=== PATIENT | male | born 1985 | race Caucasian/White ===

== ENCOUNTER 2020-01-26 09:15 | Emergency (ER) | payer MEDICAID, SELFPAY ==
[2020-01-26] VITALS (8 sets, daily range): BP systolic 130–148; BP diastolic 79–91; PULSE 68–94; RESP 16–18; TEMP 36.6–36.9; O2SAT 94–99; BMI 22.3
[2020-01-26 11:04] LABS: Absolute Lymphocyte Count 1.16 X10^3/uL (0.83-4.51); Absolute Neutrophil Count 4.9 X10^3/uL (2.0-7.7); Basophil# 0.01 X10^3/uL; Basophil% 0.1 % (0-1); Eosinophil# 0.04 X10^3/uL; Eosinophils% 0.6 % (0-5); Hemoglobin 15.7 g/dL (13.0-16.5); Lymphocyte # 1.16 X10^3/ul (4.0); Lymphocyte % 16.7 % (19-41); Mean Corp Hgb Conc 34.9 g/dL (32-36); Mean Corpuscular Hgb 32.4 pg (27.0-32.0); Mean Corpuscular Volume 92.8 fL (80-94); Mean Platelet Vol. 9.6 fl (6.2-12.0); Monocyte# 0.76 X10^3/uL; NRBC Flagged by Analyzer 0 % (0-5); Neutrophil # 4.93 X10^3/uL (2.7-7.7); Platelet Count 256 K/mm3 (150-450); RBC Distribution Width CV 11.5 % (11.6-14.6); RBC Distribution Width SD 38.9 fl (35.1-43.9); Red Blood Count 4.85 M/mm3 (4.6-6.2); White Blood Count 6.9 K/mm3 (4.4-11.0)
[2020-01-26 11:12] LABS: Alcohol, Blood (Medical)-Serum < 3.0 mg/dL
[2020-01-26 11:17] LABS: Amphetamine Urine VISTA NEGATIVE (<1000 ng/mL); Barbiturate Urine VISTA NEGATIVE (< 200 ng/mL); Benzodiazepine Urine VISTA NEGATIVE (< 200 ng/mL); Cocaine Urine VISTA NEGATIVE (< 300 ng/mL); Ecstacy Urine VISTA NEGATIVE (< 500 ng/mL); Methadone Urine VISTA NEGATIVE (< 300 ng/mL); PCP Urine VISTA NEGATIVE (< 25 ng/mL); THC Urine VISTA NEGATIVE (< 50 ng/mL); Vista UDS pH Range 6
[2020-01-26 11:26] LABS: ALB/GLOB Ratio 1.3 RATIO (0.9-2.4); AST(SGOT) 18 U/L (15-37); Alanine Aminotransfer ALT/SGPT 36 U/L (16-61); Albumin, Serum 4.4 g/dL (3.2-5.0); Alkaline Phosphatase 57 U/L (45-117); Anion Gap 3 (5-15); BUN 11 mg/dL (7-18); BUN/Creat Ratio 10.4 RATIO (10-20); Calcium,Total 9.4 mg/dL (8.5-10.1); Chloride 107 mmol/L (98-107); Creatinine, Serum 1.06 mg/dL (0.70-1.30); EST Glomerular Filtration Rate 85 mL/min (>60); Est Glom Filt Rate - Afr Amer 102 mL/min (>60); Globulin 3.3 g/dL (2.2-4.2); Glucose 93 mg/dL (74-106); Potassium 4.1 mmol/L (3.5-5.1); Protein, Total 7.7 g/dL (6.4-8.2); Sodium Level 140 mmol/L (136-145); Thyroid Stim Hormone (TSH) 2.86 uIU/mL (0.358-3.74)
--- NOTE | 2020-01-26 11:53 | CM.ED ---
Social Work Consult: Mental Health/Suicidal Patient self-pay. Telephone call to crisis. Dr. Guevara recommending psychiatric placement for patient. Crisis to facilitate placement. Crisis requesting for clinical information to be faxed. Clinical information faxed to [phone]. Medical team updated. Santino VAZQUEZ, MERLY
--- NOTE | 2020-01-26 12:20 | CM.ED ---
Addendum entered by Noemi Barkley 01/26/20 20:46: Correction: Patient now speaking with crisis Original Note: Social Work Telephone call from Crisis, This secondary social studies teacher facilitating conversation with crisis and patient via phone. Patient now speaking with patient. Santino VAZQUEZ, MERLY
--- NOTE | 2020-01-26 13:31 | ED.VIS.GEN ---
History of Present Illness Informant: Patient Narrative: Patient states that for the better part of a decade he has been compensating for his depression. However during 2019 he is not been as stable. He states it all began approximately a decade ago when he was arrested for a driving while impaired. This was in [place] and eventually he moved to [place]. While there he became the father of a child. That relationship with the mother did not work out for a variety of reasons. He states that he had a relationship with another woman that ended. He states that numerous documents were dropped back into his life. By this he means that documents that he had assume were gone suddenly appeared in his room. The screen on his phone was changed. He states I feel like the bees in the birds are after me. He states that there is a conspiracy theory that he is a part of. He tells me that 3 weeks ago he moved from [place] back to [place]. He reports that in the past 24 hours that suicide is now on the table. He denies any recent hospitalizations. States he has not been eating or sleeping well. He states that it is becoming hard to shower. <Lenny Guevara - Last Filed: 01/26/20 13:31> <Niurka Tompkins - Last Filed: 01/26/20 21:11> <Tha Mon - Last Filed: 01/27/20 00:39> Chief Complaint: Suicidal Past Medical History Smoking Status: Current every day smoker <Lenny Guevara - Last Filed: 01/26/20 13:31> <Niurka Topmkins - Last Filed: 01/26/20 21:11> <Tha Mon - Last Filed: 01/27/20 00:39> - Allergies and Home Meds Allergies/Adverse Reactions: Allergies No Known Allergies Allergy (Verified 01/26/20 09:22) Primary Care Physician: Care Physician,No Primary [Primary Care Provider] - Review of Systems General: Denies: Chills, Fever, Sweats Eyes: Denies: Visual changes - bilaterally, Diplopia ENT: Denies: Rhinorrhea, Sore throat Cardiovascular: Denies: Chest pain, Palpitations Respiratory: Denies: Dyspnea, Cough, Dyspnea on exertion Gastrointestinal: Denies: Abdominal pain, Nausea, Vomiting, Diarrhea, Melena, Hematochezia Genitourinary: Denies: Dysuria, Hematuria, Frequency Musculoskeletal: Denies: Back pain, Extremity Pain Skin: Denies: Rash, Wounds Neurological: Denies: Headache, Weakness, Numbness Psych: Reports: Depression, Suicidal thoughts <Lenny Guevara - Last Filed: 01/26/20 13:31> Physical Exam Vital Signs/Narrative: Vital Signs Resp 01/26/20 12:00 16 01/26/20 11:00 16 Inital Vital Signs reviewed: Yes General: Well nourished, Well developed, No Acute Distress Head: Normocephalic, Atraumatic Eyes: Perrl, EOMI ENT: Moist mucous membranes, No rhinorrhea Neck: Supple, Nontender Cardiovascular: Regular rate, Regular rhythm, No murmurs Respiratory: No distress, CTA bilaterally, Chest nontender Abdomen: Soft, Nontender, Nondistended, Normal bowel sounds Back: Nontender, Normal Inspection Extremities: Nontender, No edema Skin: Normal color, No rash Neurological: Alert, Oriented x3, Cranial nerves II-XII grossly intact, Normal Strength, Normal Sensation Psychological: Depressed, - - Patient appears to have some nonlinear thinking at times. He needs to be redirected. He speaks very slowly and at times very cryptic. <Lenny Guevara - Last Filed: 01/26/20 13:31> Vital Signs/Narrative: Vital Signs Temp Pulse Resp BP Pulse Ox 01/26/20 19:59 97.9 F 68 16 130/79 H 94 01/26/20 19:39 16 01/26/20 18:18 18 <Niurka Tompkins - Last Filed: 01/26/20 21:11> Diagnostic/Tx/Re-eval Laboratory Last Values WBC 6.9 K/mm3 (4.4-11.0) 01/26/20 10:05 RBC 4.85 M/mm3 (4.6-6.2) 01/26/20 10:05 Hgb 15.7 g/dL (13.0-16.5) 01/26/20 10:05 Hct 45.0 % (40-54) 01/26/20 10:05 MCV 92.8 fL (80-94) 01/26/20 10:05 MCH 32.4 pg (27.0-32.0) H 01/26/20 10:05 MCHC 34.9 g/dL (32-36) 01/26/20 10:05 RDW Std Deviation 38.9 fl (35.1-43.9) 01/26/20 10:05 RDW Coeff of Mindi 11.5 % (11.6-14.6) L 01/26/20 10:05 Plt Count 256 K/mm3 (150-450) 01/26/20 10:05 MPV 9.6 fl (6.2-12.0) 01/26/20 10:05 Immature Gran % (Auto) 0.600 % (0.0-0.9) 01/26/20 10:05 Neut % (Auto) 71.0 % (47-70) H 01/26/20 10:05 Lymph % (Auto) 16.7 % (19-41) L 01/26/20 10:05 Freestone % (Auto) 11.0 % (0-10) H 01/26/20 10:05 Eos % (Auto) 0.6 % (0-5) 01/26/20 10:05 Baso % (Auto) 0.1 % (0-1) 01/26/20 10:05 Absolute Neuts (auto) 4.9 X10^3/uL (2.0-7.7) 01/26/20 10:05 Absolute Lymphs (auto) 1.16 X10^3/uL (0.83-4.51) 01/26/20 10:05 Nucleated RBC % 0 % (0-5) 01/26/20 10:05 Sodium 140 mmol/L (136-145) 01/26/20 10:05 Potassium 4.1 mmol/L (3.5-5.1) 01/26/20 10:05 Chloride 107 mmol/L (98-107) 01/26/20 10:05 Carbon Dioxide 30.0 mmol/L (21.0-32.0) 01/26/20 10:05 Anion Gap 3 (5-15) L 01/26/20 10:05 BUN 11 mg/dL (7-18) 01/26/20 10:05 Creatinine 1.06 mg/dL (0.70-1.30) 01/26/20 10:05 Estim Creat Clear Calc 100.80 ml/min 01/26/20 10:05 Est GFR (MDRD) Af Amer 102 mL/min (>60) 01/26/20 10:05 Est GFR (MDRD) Non-Af 85 mL/min (>60) 01/26/20 10:05 BUN/Creatinine Ratio 10.4 RATIO (10-20) 01/26/20 10:05 Glucose 93 mg/dL (74-106) 01/26/20 10:05 Calcium 9.4 mg/dL (8.5-10.1) 01/26/20 10:05 Total Bilirubin 0.80 mg/dL (0.20-1.00) 01/26/20 10:05 AST 18 U/L (15-37) 01/26/20 10:05 ALT 36 U/L (16-61) 01/26/20 10:05 Alkaline Phosphatase 57 U/L (45-117) 01/26/20 10:05 Total Protein 7.7 g/dL (6.4-8.2) 01/26/20 10:05 Albumin 4.4 g/dL (3.2-5.0) 01/26/20 10:05 Globulin 3.3 g/dL (2.2-4.2) 01/26/20 10:05 Albumin/Globulin Ratio 1.3 RATIO (0.9-2.4) 01/26/20 10:05 TSH 2.86 uIU/mL (0.358-3.74) 01/26/20 10:05 Urine Opiates Screen NEGATIVE (< 300 ng/mL) 01/26/20 09:54 Urine Methadone Screen NEGATIVE (< 300 ng/mL) 01/26/20 09:54 Ur Barbiturates Screen NEGATIVE (< 200 ng/mL) 01/26/20 09:54 Ur Phencyclidine Scrn NEGATIVE (< 25 ng/mL) 01/26/20 09:54 Ur Amphetamines Screen NEGATIVE (<1000 ng/mL) 01/26/20 09:54 U Methamphetamin-MDMA NEGATIVE (< 500 ng/mL) 01/26/20 09:54 U Benzodiazepines Scrn NEGATIVE (< 200 ng/mL) 01/26/20 09:54 Urine Cocaine Screen NEGATIVE (< 300 ng/mL) 01/26/20 09:54 U Cannabinoids Screen NEGATIVE (< 50 ng/mL) 01/26/20 09:54 Ur Drug Screen Comment 01/26/20 09:54 Ethyl Alcohol < 3.0 mg/dL 01/26/20 10:05 - Medical Decision Making Patient was medically cleared for psychiatric evaluation. Crisis evaluated the patient. Patient does not appear to be doing well from his mental health standpoint. He is not eating sleeping or taking care of himself like normal. In the past 24 hours she now tells me that suicide has entered his thought. I get a sense that he may have a degree of paranoia. I think he would benefit from inpatient psychiatric evaluation. <Lenny Guevara - Last Filed: 01/26/20 13:31> - Rhythm Strip Rhythm Strip: Sinus Rhythm Rate: 63 Ectopy: None - EKG Initial EKG Interpretation: Sinus Rhythm, - - Sinus rhythm at a rate of 63 Normal intervals Normal axis Normal ST segments - Medical Decision Making Patient signed out to me by Dr. Guevara, pending psychiatric acceptance. [facility] states that he is #8 on the list she will be a couple days before he can be accepted. I did request EKG which is obtained. It shows normal sinus rhythm. Patient is medically cleared. They did state that they would need a coronavirus test so this is ordered. While patient is in the ER he is requesting melatonin for sleep. This is ordered. <Niurka Tompkins - Last Filed: 01/26/20 21:11> - Medical Decision Making Patient was signed out to me. He is calm collected and stable I had a long discussion with him he is in no acute distress he is accepted at [facility] however there are no beds at this time and he is awaiting transfer. <Tha Mon - Last Filed: 01/27/20 00:39> ED Disposition <Lenny Guevara - Last Filed: 01/26/20 13:31> <Niurka Tompkins - Last Filed: 01/26/20 21:11> <Tha Mon - Last Filed: 01/27/20 00:39> - Plan for ED Patient: Disposition: Psychiatric Hospital or Unit Diagnosis: Depression, Suicidal thoughts, Paranoia Referrals: Care Physician,No Primary [Primary Care Provider] -
--- NOTE | 2020-01-26 19:51 | EKG12_ITS ---
Test Reason : [facility] – [place] Blood Pressure : / mmHG Vent. Rate : 063 BPM Atrial Rate : 063 BPM P-R Int : 142 ms QRS Dur : 102 ms QT Int : 400 ms P-R-T Axes : 032 073 038 degrees QTc Int : 409 ms Normal sinus rhythm Normal ECG Confirmed by MARCELLE SHAW, JONN ([id number]), pictures editor SHARMAINE GRANDE ([id number]) on 01/30/2020 8:43:04 AM Referred By: IVAN Confirmed By:JONN IBANEZ MD
[2020-01-26] MEDS: MELATONIN 10 MG TABLET PO (19:58)
--- NOTE | 2020-01-26 21:07 | CM.ED ---
Social Work Telephone call to Crisis to check on status of case. Patient pending [facility] approval. [facility] requesting for EKG and COVID results to be faxed when obtained. [facility] reports that it could be Wed or Wednesday before patient is accepted. Updated medical team. Medical team to fax EKG and COVID results when obtained. Santino VAZQUEZ, MERLY
[2020-01-26 21:36] LABS: Probe Check PASS; Specimen Processing Control PASS
[2020-01-27] VITALS (11 sets, daily range): BP systolic 128–139; BP diastolic 72–80; PULSE 70–80; RESP 14–16; O2SAT 99–100
[2020-01-27] MEDS: MELATONIN 10 MG TABLET PO (21:27)
[2020-01-28] VITALS (12 sets, daily range): BP systolic 118–135; BP diastolic 75–87; PULSE 63–73; RESP 13–17; O2SAT 96–100
--- NOTE | 2020-01-28 18:53 | ED.RN ---
pt on the phone with crisis
[2020-01-28] MEDS: MELATONIN 3 MG TABLET PO (20:29)
[2020-01-29] VITALS (14 sets, daily range): BP systolic 118–135; BP diastolic 76–87; PULSE 72–86; RESP 14–18; O2SAT 96–98
--- NOTE | 2020-01-29 11:39 | CM.ED ---
SOCIAL WORK Patient's mother at bedside with questions for Crisis. Call facilitated to Aimee with Crisis. Patient awaiting bed at [facility] at this time. Angelito Parikh, COMBAT CONTROL MANAGER, SKID ROAD WORKER
--- NOTE | 2020-01-29 14:00 | CM.ED ---
SOCIAL WORK Mother and patient requesting to speak with this worker. Patient reporting to no longer feel suicidal. Mother wanting to take patient home with outpatient follow up. Dr. Chacko updated. Crisis updated. Updated by Dr. Chacko, plan to discharge patient in mother's care. Patient and mother given mental health resources for follow up. Patient already established with counselor through [facility], but wishes to be seen by a psychiatrist. All questions answered. Plan: Home Angelito Parikh MSW, MANAGER DISTRIBUTION
--- NOTE | 2020-01-29 14:28 | ED.DCSUM_ITS ---
History of Present Illness Chief Complaint: Suicidal Informant: Patient Narrative: Patient presented to the emergency department over 72 hours ago for possible suicidal ideation. He was having some tangential thinking as well. He recently moved from [place] to [place]. Throughout his course of ED stay he was pink slipped. He was going to be placed but unfortunately was not able to be transferred due to no bed availability. Patient is had been following the patient daily. Over the last 24 hours he has been saying he is no longer suicidal. His mother has been at bedside. Since the patient has not been able to be placed they are wanting to be discharged at this time. He is currently d enying any homicidal or suicidal ideation. He does follow with a counselor as an outpatient. Past Medical History - Allergies and Home Meds Allergies/Adverse Reactions: Allergies No Known Allergies Allergy (Verified 01/26/20 09:22) Primary Care Physician: Jose Yee DO [STAFF PHYSICIAN] - 2 Days Care Physician,No Primary [Primary Care Provider] - Smoking Status: Current every day smoker Review of Systems Psych: Denies: Suicidal thoughts, Suicidal ideations Physical Exam Vital Signs/Narrative: Vital Signs Pulse Resp BP Pulse Ox 01/29/20 11:41 79 16 134/86 H 96 Inital Vital Signs reviewed: Yes General: Well nourished, Well developed Head: Normocephalic, Atraumatic Eyes: Perrl, EOMI ENT: Moist mucous membranes Neck: Supple Cardiovascular: Regular rate Respiratory: No distress Abdomen: Nondistended Skin: Normal color, No rash Neurological: Alert, Oriented x3 Psychological: Normal affect, Normal Mood Diagnostic/Tx/Re-eval - Rhythm Strip Rhythm Strip: Sinus Rhythm Rate: 63 Ectopy: None - Medical Decision Making Patient presented to the emergency department for possible suicidal ideation and some tangential thinking. He has been in the ED for over 72 hours. They are now requesting to be discharged as he has not been able to be placed at this point. Crisis feels that the patient is no longer a threat to himself. I went and reevaluate the patient and he is stating that he no longer has these thoughts. He is requesting to be discharged. Patient did go past the 72 hours from initial pink slip being signed. At this time I have no reason to re-sign a pink slip as he is denying suicidal ideation. He has been feeling better over the past 2 days. He is requesting outpatient resources and social work was able to provide this. The mother who is at bedside is agreeable with this plan. She does feel comfortable taking him home. He does have resources and a counselor. He understands that he can return to the emergency department anytime if he were to have repeat symptoms or thoughts of harming himself. At this time will discharge home in stable condition. He is given referral for PCP as he does not currently have one. ED Disposition - Plan for ED Patient: Disposition: Home or Assisted Living Diagnosis: Depression, Suicidal thoughts, Paranoia Instructions: ED Psychosis, ED 72-HOUR HOLD Suicidal Referrals: Care Physician,No Primary [Primary Care Provider] - Jose Yee DO [STAFF PHYSICIAN] - 2 Days
== END 2020-01-29 14:45 | disposition home or self-care (01) ==
PROVIDERS: Emergency Medicine; Emergency Provider Emergency Medicine
DX: F32.9 Major depressive disorder, single episode, unspecified (principal); R45.851 Suicidal ideations; F22 Delusional disorders; F17.200 Nicotine dependence, unspecified, uncomplicated
CPT/HCPCS: 36415; 80053; 80307; 80320; 84443; 85025; 87635; 93005; 94799; 99284; G0480; U0003

== ENCOUNTER 2020-07-31 09:00 | Outpatient (RCR) | payer MEDICAID, SELFPAY ==
[2020-01-26 09:18] VITALS: BMI 22.3
--- NOTE | 2020-07-31 09:49 | BH.COMM ---
Communication Note - Communication with Client Communication Note: Met with client to complete initial paperwork. No significant changes since pre-admission screening. Completed [place] Suicide Screening. Client denies any suicidal ideations, plan, or intent within the past month. Reports he had passive wishes of around Janet, but client denies any currently. Client has no history of suicide attempts. Client was in the [facility] ER on 01/26/20 for SI. Client reports in his lifetime he has had thoughts of killing himself, but he?s never had any intent to act on these thoughts. Client?s daughter is his biggest protective factor. Denies access to weapons and lives at home with his parents. Reports ability to maintain safety today.
--- NOTE | 2020-07-31 11:10 | BH.SGPN.GN ---
Behaviors/Verbalizations/Mental Status: []Client alert and oriented, casually dressed, hygiene appeared to be tended to. Eye contact fair. Motor activity appropriate. Speech within normal limits. Affect flat, mood depressed. Thoughts linear, logical, no signs of hallucinations or delusions. Client Response/Progress/Benefit: []Client passive participant AEB pt providing limited input however appeared to listen attentively to discussion. Client worked with group to identify what mental stigma has prevented them from doing. Client stated stigma has prevented him from developing meaningful relationships. Group brainstormed strategies to combat social and perceived stigma which included: educating others, no longer using negative language about mental illness, being open about mental health, self-compassion and not reinforcing stigma with behaviors or labels. Client stated he cannot identify at this time what he wants to work on to decrease perceived stigma. Appeared to benefit from increasing awareness of strategies to combat stigma. Client's first day in PHP. Will continue PHP tx to increase healthy coping, improve daily functioning, and prevent decompensation.
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
--- NOTE | 2020-07-31 13:00 | BH.MTP ---
Master Treatment Plan - Patient Information Program Physician:: Dr. Annalise Natarajan Primary Therapist:: Khoa Banks - Psychiatric Diagnoses Psychiatric Diagnoses:: Bipolar 1, most recent episode depressed, severe w/ psychosis. r/o Schizoaffective. r/o Paranoid Personality D/O Diagnosis Code(s):: F31.5 - Estimated LOS Estimated LOS (in weeks):: 6 Problem/Goal #1 - Problem/Goal #1 Stated Goal:: Client will reduce depression, worthlessness, guilt, and suicidal thinking due to Bipolar Disorder through IOP services. Will show a reduction in the depression domains of the DSM5 cross-cutting scales. Description of Barriers: Ruminations, grief, limited motivation to move from the past, hopelessness due to belief that he will never get out of debt or be with his daughter Functional Impact: Worsening mental health symptoms for the past several months which have impacted pt's relationships, finances, work, and overall functioning. Had not been to work for 5 days previous to starting IOP to due depression related to constant ruminations on past events. - Objectives Objective #1 Stated Objective: Client will identify at least 2 triggers to increased depressive thinking, as well as 2 coping skills to use to help avoid depressive rumination. Will utilize skills learned consistenly Interventions: Through indivudal and group counseling pt will be able identify negative thinking patterns to trigger mood changes and help encourage the use of coping skills learned in group. Discharge Criteria: Client will have met this goal when better insight into mood changes and negative thinking are identified. Pt will be able to identify most common triggers to depression and 2 skills to utilize to help manage emotions related to triggers. Target Date: 09/11/20 Review Date: 08/28/20 Problem/Goal #2 - Problem/Goal #2 Stated Goal:: Client will reduce overall frequency, intensity, and duration of the anxiety so that daily functioning is not impaired. Will show reduced score in the anxiety domain of the DSM5 cross-cutting scales. Description of Barriers: Ruminations, grief, limited motivation to move from the past. Functional Impact: Worsening mental health symptoms for the past several months which have impacted pt's relationships, finances, work, and overall functioning. Had not been to work for 5 days previous to starting IOP to due anxiety and intrusive thoughts related to constant ruminations on past events. - Objectives Objective #1 Stated Objective: Complete Cost Benefit Analysis of Maintaining the Anxiety listing advantages and disadvantages of negative thoughts, fear, or anxiety. Interventions: Through individual and group counseling pt will be able to identify the costs of current ruminations on functioing and mental wellness. Will explore strategies to decrease the impact of ruminations of daily fucntioning. Discharge Criteria: Will have completed cost/benefit analysis and report new strategies to combat anxiety and irritability through mindfullness, focusing on present, and identifying and managing distress related to triggers. Pt will also show a reduction in anxiety AEB decreased scores in anxiety domain of DSM-5 cross-cutting scales. Target Date: 09/11/20 Review Date: 08/28/20 Problem/Goal #3 - Problem/Goal #3 Stated Goal:: Decrease the frequency, intensity, and severity of ruminations on past events and misinterpretations of reality AEB by self report, parents report, and decrease in relavant DSM5 scale domains. Description of Barriers: Perception of past events has resulted in significant emotional distress. Reports inability to let go of past percieved events despite advice of family and friends. Spending hours per day researching legal recourse for percieved past events. Functional Impact: Worsening mental health symptoms for the past several months which have impacted pt's relationships, finances, work, and overall functioning. Had not been to work for 5 days previous to starting IOP to due anxiety and intrusive thoughts related to constant ruminations on past events. - Objectives Objective #1 Stated Objective: Develop healthy thinking patterns and beliefs about self, others, and the world Interventions: Through individual and group counseling provide education and guidance on healthy coping, impact of ruminations of the past, and identifying and challenging unrealistic intrustive thoughts. Discharge Criteria: Pt will be able to identify 3 strategies to manage emotional distress related to triggers to paranoid thoughts. Pt will report decreased amount of time spent researching and ruminating on past events. Target Date: 09/17/20 Review Date: 08/27/20
--- NOTE | 2020-07-31 13:08 | BH.DR.ITP ---
Initial Treatment Plan - Patient Information Visit Information: ADMISSION DATE: EXPECTED LOS: 4-6 weeks - Problems/Symptoms Problem #1:: Depression Symptom:: Sadness, worthlessness, occasional hopelessness, guilt Problem #2:: Anxiety Symptom:: Worry, ruminations Problem #3:: Paranoia
--- NOTE | 2020-08-01 09:00 | BH.SGPN.GN ---
Behaviors/Verbalizations/Mental Status: []Client alert and oriented, casually dressed. Eye contact fair. Motor activity appropriate. Speech within normal limits. Affect constricted, mood anxious and dysthymic. Thoughts linear, logical, no signs of hallucinations or delusions. Reviewed client?s symptom tracker, no risk or plan for suicide ideation as of 08/01/20. Client Response/Progress/Benefit: []Client responded well to session, engaged throughout and participated in group discussion. Client reported feeling ?slightly relieved and hopeless? after sharing his positive experience with IOP on his first day. Client reflected and stated how he felt understood when speaking with Dr. Payne and client reported a positive as getting his medication prescribed. Client stated his goal as ?stop ruminating on the past.? Progress noted as client was vulnerable and chose to share in his first process group in IOP treatment. Benefited from group as other group members shared positive insight of IOP program to reduce client nerves. Will continue IOP to monitor psychosis, prevent decompensation, and learn healthy coping skills. Narrative Note: []
--- NOTE | 2020-08-01 10:08 | BH.SGPN.GN ---
Behaviors/Verbalizations/Mental Status: []Client alert and oriented, neatly dressed and groomed. Eye contact good. Motor activity appropriate. Speech within normal limits. Affect flat, mood dysthymic. Thoughts linear, logical, no signs of hallucinations or delusions Client Response/Progress/Benefit: []Client was engaged AEB taking notes and participating in discussion. Client shared current reality as gripping jail bars with his daughter on the other side as client feels isolated and unsure of his situation. Client's realistic, desired reality is to be with his daughter, feeling more hopeful, and having help to ?fight for my rights.? Client reports belief that he is ?1,000 miles away? from his justice and happiness. Group discussed common barriers that keep people stuck to include stigma, upbringing, self-comparison, lack of self-care, and negative thinking. Benefited from group as client was able to identify current and desired mental health state and increase awareness of how barriers can impact progress. Progress noted in client?s attendance and engagement. Will continue IOP tx to prevent decompensation, monitor mood, and learn health coping skills. Narrative Note: []
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
[2020-08-01 12:13] VITALS: BP 137/88; PULSE 86
--- NOTE | 2020-08-01 15:17 | BH.MDN ---
Multi-Disciplinary Note - Note 30-min Individual Time Started:: 12:10 Date: 08/01/20 Purpose of session/treatment goals addressed:: Reviewed current symptoms, stressors, and experience in IOP. Practiced mindfulness skills. Eye Contact:: Fair Motor Activity:: Appropriate Appearance:: Casual Speech:: Other - slow Mood:: Depressed Affect:: Constricted Thoughts:: Other - evidence of probable paranoia. Did well to focus during skill rehearshal Staff Interventions:: Provided supportive feedback and actively listening. Provided psychoeducation on impact of stress on the brain. Led mindfulness activities for client to practice in session. Client Response:: Client reports that he is feeling more hopeful since starting IOP. Believes that medication changes made were effective. Reports last night sleep was ?refreshing? and his thought process was less intense with the medication change. Client reports his goal from yesterday was to spend 30 minutes not ruminating on the past. Client shared he tried this but was unsuccessful due to his racing mind. Client receptive to psychoeducation on mindfulness and stress?s impact on the brain. Client willing to practice progressive muscle relaxation and 5-senses. Client responded better to progressive muscle relaxation and shared he could see himself practicing this at home. Client endorses some ruminations about his past and had legal questions. Therapist was unable to give client clear answers and encouraged client to address this with his regular IOP therapist. Client receptive to gentle thought challenging and encouragement. Risks/Concerns:: Client denies any suicidal ideations, plan, or intent as of 08/01/20. No other concerns or risks noted. Progress Toward Goals/Plan:: Progress noted per client report of improve sleep and being more hopeful since starting IOP. Second day of treatment, but he has been consistent and engaged. Client is receptive to learning new skills as well as being challenged to reframe perspective. Client continues to endorse ruminations on the past, paranoid thoughts, anxiety, a depressed mood, and racing thoughts. Will continue IOP tx to maintain safety, improve daily functioning, and increase healthy coping skills. Time Stopped:: 12:45
--- NOTE | 2020-08-02 09:05 | BH.SGPN.GN ---
Behaviors/Verbalizations/Mental Status: [] Eye contact is good. Motor activity is appropriate. Appearance is disheveled. Speech is soft. Mood is depressed. Affect is flat. Thoughts are linear and logical. No evidence of psychosis. Reviewed daily check in sheet and no suicidal thoughts. Client Response/Progress/Benefit: [] Pt participated at times during group discussion. Emotion for today is hopeful. Daily symptom tracker notes 3/5 for irritability and 2/5 for depression and anxiety. Shared with the group that he believes that recent medication changes have been beneficial and discussed his reasons for believing this. Reports that he is feeling more optimistic and hopeful about his future. Check-in was brief. Progress noted per pt report. Will continue in IOP to prevent decompensation, stabilize mood, and to improve functioning. Narrative Note: []
--- NOTE | 2020-08-02 10:15 | BH.SGPN.GN ---
Behaviors/Verbalizations/Mental Status: [] Eye contact is good. Motor activity is appropriate. Appearance is disheveled. Speech is Appropriate. Mood is depressed. Affect is flat. Thoughts are linear and logical. No evidence of psychosis. Client Response/Progress/Benefit: [] Pt was an active participant in group discussions and activities. Attentive. Worked with peers to define what self-care is and it's benefits to mental health. Self-care was identified as activities that we do to; maintain/enhance our well-being, reduce stress, increase communication, improve view of self, decrease burnout, and to have fun. Group discussed the obstacles to completing self-care activities and the myths surrounding them which included; self-care is selfish, I'm too busy for them, self-care is just having fun, I don't deserve to do self-care, self-care has to be planned, self-care should only be done when I have nothing else to do. Group broke into smaller groups and worked together to bust these myths. Pt benefited due to increased awareness of importance of self-care in mental health. Will continue in IOP to prevent decompensation, stabilize mood, and improve functioning Narrative Note: []
--- NOTE | 2020-08-02 11:15 | BH.SGPN.GN ---
Behaviors/Verbalizations/Mental Status: []Client alert and oriented, neatly dressed and groomed. Eye contact good. Motor activity appropriate. Speech within normal limits. Affect flat, mood dysthymic. Thoughts linear, logical, no signs of hallucinations or delusions. Client Response/Progress/Benefit: []Client active participant AEB client providing input during discussions and listened attentively to peers. Participated in group discussion on the various areas of self-care and types of self-care activities for each area. Client completed worksheet in which client identified current self-care practices and what self-care activities client wants to start using. Client reports belief spiritual self-care in a current strength, but client would like to improve psychological self-care. Client states he feels like he is struggling with most of the areas of self-care, but client has started taking steps to improve his psychological self-care. Client plans to continue working on this area by coming to counseling and setting boundaries. Client?s first week of IOP tx. Will continue IOP tx to prevent decompensation, learn healthy coping skills, and improve daily functioning. Narrative Note: []
--- NOTE | 2020-08-02 13:00 | BH.MDN_ITS ---
Multi-Disciplinary Note - Note 45-min Individual Time Started:: 12:15 Date: 08/02/20 Purpose of session/treatment goals addressed:: Reviewed current symptoms, stressors, and progress in IOP. Addressed treatment plan goals. Eye Contact:: Good Motor Activity:: Appropriate Appearance:: Casual Speech:: Soft Mood:: Depressed Affect:: Flat Thoughts:: Linear, Logical, Other - paranoia Staff Interventions:: Challenged and reframed thoughts. Pointed out cognitive distortions. Utilized CO techniques to elicit change. Client Response:: Pt reports that he is feeling more hopeful since starting IOP. Believes that medication changes made were effective. Reports being less anxious, more hopeful, and more clear-minded to focus on changes. Plans to return back to work this weekend. Has no overt concerns about this. He talked briefly about his relationship with his parents( with whom he lives) and thier struggle to understand and help with his mental health symptoms. He does believe they have been supportive. He discussed his previous mental health treatment at [facility] and [facility] as well as his current therapist at [facility] ([facility]). Past events in [place] continue to be primary stressor for which he talked at length. This therapist continues to try on work on ways to reframe perspective and thoughts and focus on the future. Pt states its hard to forget that 5 years of my life were wasted. When challenged that rumination and dwelling could waste 5 more years of his life he was receptive to the power of these ruminations. Risks/Concerns:: no risks or concerns noted. Progress Toward Goals/Plan:: Progress noted per pt report. Reports being more hopeful, less anxious, and more clear-headed. Consistent and engaged in group work. Responds well to challenges and encouragment of this counseling to focus on present and future, however feels that he has to address the pass. Insight that he could do both as they are not mutally exclusive. Plan is to continue in IOP to maintain safety, improve functioning, and stablize mood. Time Stopped:: 13:00
--- NOTE | 2020-08-05 09:00 | BH.SGPN.GN ---
Behaviors/Verbalizations/Mental Status: []Client alert and oriented, casually dressed. Eye contact fair. Motor activity appropriate. Speech within normal limits. Affect constricted, mood anxious and dysthymic. Thoughts linear, logical, no signs of hallucinations or delusions. Reviewed client?s symptom tracker, no risk or plan for suicide ideation as of 08/05/20 Client Response/Progress/Benefit: []Client responded well to session, engaged throughout and participated in group discussion. Client reported feeling ?anxious and slightly relieved? this morning. Stated he went back to work over the weekend and reported practicing mindfulness like progressive muscle relaxation, meditation, and prayer to decrease ruminations. Progress noted as client also reported his medication working longer than before, as well journaling when ruminating to help gather thoughts. Benefited from group as peers provided positive support and feedback to client.. Will continue IOP to prevent decompensation, reduce negative thinking, and practice healthy coping skills daily. Narrative Note: []
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
--- NOTE | 2020-08-05 10:50 | BH.MDN_ITS ---
Multi-Disciplinary Note - Note 45-min Individual Time Started:: 12:15 Date: 08/05/20 Purpose of session/treatment goals addressed:: Reviewed symptoms and progress in IOP. Addressed treatment plan goals. Eye Contact:: Poor Motor Activity:: Slowed Appearance:: Disheveled Speech:: Soft Mood:: Depressed Affect:: Flat Thoughts:: Linear, Logical, Other - Mild paranoia regarding injustice agaisnt him. Staff Interventions:: Allowed pt to vent and discuss trauma in a safe and non- judgemental environment. Provided education on impact of trauma. Client Response:: Pt reports improved mood and sleep. States I slept a lot better last night. He opened up about his past trauma which lasted a majority of the session and dicussed the need for complex trauma treatment. Provided education and discussed the limitations of IOP in regards to trauma and we discussed researching providers in the area for aftercare. His goals for IOP are to meet with psychiatrist on consistent basis to figure out his medications; have a consistent outlet to talk about his ruminations; learn better ways to coping with emotions; and to gain hope. Risks/Concerns:: No risks or concerns noted. Progress Toward Goals/Plan:: Pt reports progress. Feels that medications and groups have been beneficial. Improved sleep, improved mood, and increased clarity. Continues to ruminate extensively on past events and injustices which cause sustained anger, hopelessness, and isolation. These ruminations are impacting his relationships. 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 Notes that this has decreased in intensity, frequency, and severity. Plan is to continue with IOP to stablize mood, increase healthy coping, and to improve functioning. Time Stopped:: 13:00
--- NOTE | 2020-08-05 11:20 | BH.SGPN.GN ---
Behaviors/Verbalizations/Mental Status: []Client alert and oriented, casually dressed and appropriately groomed. Eye contact fair. Motor activity appropriate. Speech within normal limits. Affect flat, mood depressed. Thoughts linear and intact. no signs of delusions or hallucinations. Client Response/Progress/Benefit: []Client responded well to session AEB pt listening attentively to peers and providing input at times. Client engaged in the boundary self-assessment activity and attentive during psychoeducation on the different boundary styles. Client participated in review of personal bill of rights and discussion about how adopting certain bill of rights can help improve boundary setting. Client stated from the personal bill of rights worksheet he wants to work on adopting the belief I have the right to be happy. Client stated he thinks starting to believe that bill of right could help him recognize that he is allowed to set boundaries with others and engage in things that will make him happy. Will continue IOP tx to improve daily functioning, increase healthy coping skills and prevent decompensation. Narrative Note: []
--- NOTE | 2020-08-06 10:50 | BH.MDN_ITS ---
Multi-Disciplinary Note - Note 60-min Individual Time Started:: 09:15 Date: 08/06/20 Purpose of session/treatment goals addressed:: Reviewed progress and current symptoms. Addressed treatment goals. Eye Contact:: Good Motor Activity:: Appropriate Appearance:: Disheveled Speech:: Soft Mood:: Depressed Affect:: Flat Thoughts:: Linear, Logical, No evidence of hallucinations/delusions noted - mild paranoia Staff Interventions:: Therapist continues to challenge pt's beleifs and perspectives regarding his ruminations. Provided educational handout on strategies to overcome past injustices. Client Response:: Pt reports that his medication change has been beneficial however he has noticed that his medications wear off in the afternoon. Also expressed interested in weaning off his Lexapro. Pt was placed on list to meet with psychiatrist tomorrow to discuss this further. Increased social behaviors as he reports spending time with his younger brother and family. He discussed yesterday's group on Boundaries stating that he has very rigid boundaries and has a difficult time trusting others. Awareness and insight that he has to respect his dad's boundaries more as well. He discussed this further. Identified some of his internal thoughts which included; no hope, no feeling in control, and feeling as if he was taken advantage of while he was living in [place]. Therapist continues to challnege belief that he has no control over his future and the ability to work both on himself in the present while minimizing the impact of the past on his emotions. Responds well to challenges. Risks/Concerns:: No risks or concerns noted. Progress Toward Goals/Plan:: Pt reports progress. Able to identify several external healthy coping skills which are mainly distractions and mindfulness strategies. We will focus more on developing internal coping skills to better manage thoughts. Consistent attendance in IOP. Engaged in groups. Medication compliant. As noted above his ruminations continue to impact his emotions and functioning. Did return to part-time work this past weekend, however does not feel he is able to return to full-time. Will continue in IOP to prevent decompe nsation, improve functioning, and decrease ruminations. Time Stopped:: 10:15
--- NOTE | 2020-08-07 09:05 | BH.SGPN.GN ---
Behaviors/Verbalizations/Mental Status: [] Eye contact is good. Motor activity is appropriate. Appearance is casual. Speech is Appropriate. Mood is depressed/irritable. Affect is congruent. Thoughts are linear and logical. No evidence of psychosis. Reviewed daily check in sheet and no reports of suicidal ideations or intent. Client Response/Progress/Benefit: [] Pt participated at times during the group discussion. Attentive. Provided appropriate feedback. Emotion for today is anxious and angry. Spoke with his daughter last evening which he reports is very positive for him. He shared his stressors which include finances and ruminations on his legal issues. Goal is to complete self-care. Notes that he is sleeping better and overall believes that his medication changes have been helpful slowing down thoughts and improving clarity. Progress noted per pt. Benefited from group support and encouragement. Will continue in IOP to prevent decompensation, stabilize mood, and increase healthy coping skills. Narrative Note: []
--- NOTE | 2020-08-07 10:00 | BH.SGPN.GN ---
Behaviors/Verbalizations/Mental Status: []Client alert and oriented, neatly dressed and groomed. Eye contact good. Motor activity appropriate. Speech soft. Affect constricted, mood depressed. Thoughts linear, logical, no signs of hallucinations or delusions. Client Response/Progress/Benefit: []Client engaged throughout session AEB providing input when prompted. Appeared to connect with discussion on crisis and how unhealthy coping could result in a personal crisis. Client shared getting accused of a crime as an example of a crisis. Group reflected on the importance of having awareness of personal warning signs in order to prevent reaching crisis point. Group identified potential warning signs for crisis and client completed the personal warning signs worksheet. Client identified personal crisis warning signs to include increased racing thoughts. Client benefited from increasing awareness of what leads to crisis and personal warning signs. Progress noted as client reports less hopelessness and learning healthy coping skills. Will continue IOP tx to prevent decompensation, monitor delusions, and improve ability to function. Narrative Note: []
--- NOTE | 2020-08-07 11:59 | PCM.BH.PN ---
Progress Note Progress Note: History of Present Illness/Interim History: [] The patient is a 35-year-old male who is seen in follow-up at the [facility] behavioral health IOP program. I last saw the patient 1 week ago and at that time his dose of Seroquel was increased to 200 mg p.o. nightly. The patient says he feels that the increased dose of Seroquel has helped him a lot. He feels he is ruminating and a less severe amount. His mood is also somewhat better. His dreams are more vivid but this does not disturb him. He feels that he is doing well in the IOP program and feels he is benefiting especially from the individual therapy. The group therapy is beneficial for him because he thinks about other people instead of just thinking about himself according to the patient. He continues to work on not thinking about the past all the time. He expressed an interest in getting treatment for complex trauma when he completes this program. The patient discussed past events and bad stressors he had during the interview. He denies any symptoms of rene. He denies passive thoughts of , suicidal ideation, homicidal ideation, hallucinations and delusions. He expresses a willingness to wean his Lexapro as it could increase the cycling in his bipolar disorder. Current Psychiatric Medications: [] Lexapro 10 mg p.o. daily (since January 2020); Lamictal 150 mg p.o. daily (since February 2020); Seroquel XR 200 mg p.o. nightly (dose increased 1 week ago). Mental Status Examination: [] Patient is a 35-year-old male who appears normal for stated age and is seen wearing a mask due to the pandemic. He is casually dressed and groomed with good hygiene. He has good eye contact but looks away at times when he is discussing a sensitive topic. Speech is normal rate and rhythm and fluent with no pressure. Mood is depressed. Affect is constricted and tearful at times. Thought process is goal-directed and organized. Thought content: There is no evidence of suicidal ideation, thoughts of , homicidal ideation, or hallucinations. There is still evidence of the patient's longstanding paranoia over things that have happened to him in the past and feeling that he is being monitored. Impulsivity is moderate. Insight: Limited. Judgment intact. Diagnoses: [] Olney I: [] Bipolar 1 disorder, most recent episode depression, severe with with psychosis; rule out schizoaffective disorder, bipolar type Ol[place] II: [] Rule out paranoid personality disorder; rule out schizotypal traits Olney III: [] Negative Olney IV:[]] Primary support, job, financial issues Plan: [] The patient will continue the IOP program at [facility] as the structure, support, education, individual and group therapy will hopefully prevent worsening of the patient's symptoms which might require hospitalization. The patient felt safe during the interview and if it anytime he does not feel safe he will let us know or go to the emergency room. The risks, options, possible complications and side effects of the medications were again discussed with the patient and he understands and accepts these. He agrees to avoid marijuana and all other drug use as much as possible as this may make his tendency to be psychotic get worse. He will continue the Seroquel XR at 200 mg p.o. nightly. He will continue his Lamictal at the current dose. He agrees to decrease his Lexapro to 1/2 tablet or 5 mg p.o. daily for 2 weeks and then discontinue it. Discussion was had with the patient and he requests that he obtain a letter stating that he is unable to work at the type of job that would make enough money to pay his child support at the high level he feels it is at. The patient will continue to follow-up with outpatient psychiatric and medical providers. I will see the patient in 1 to 2 weeks.
--- NOTE | 2020-08-07 13:15 | BH.MDN ---
Multi-Disciplinary Note - Note 45-min Individual Time Started:: 12:00 Date: 08/08/20 Purpose of session/treatment goals addressed:: Reviewed progress and current symptoms. Addressed treatment plan goals. Eye Contact:: Good Motor Activity:: Slowed Appearance:: Disheveled Speech:: Soft Mood:: Depressed Affect:: Flat Thoughts:: Linear, Logical, No evidence of hallucinations/delusions noted - mild paranoia Staff Interventions:: Continue to challenge perspective and beliefs as well as encourage focusing on present. Modeled thought challenging skills. Client Response:: Pt reports that meeting with psychiatrist went well and discussed medication changes. Talked about the group topic today which was crisis. Shared increased insight into taking ownership on how his negative thoughts and reactions contributed to his downward spiral in the past. Insight into his current ability to control these thoughts and inturn his reactions. Increased confidence in his ability to manage his thoughts, emotions, and behaviors. We talked about handout given yesterday regarding overcoming past injustices. Resistance on some aspects of the handout and he feels a responsibility to continue to research and seek legal avenues to right injustices of his past. We talked about identifying a point were the costs of seeking justice become detrimental. Open to this discussion and was able to state that if I'm unable to find a jewelry appraiser who specializes in my specific civil rights concerns or if a jewelry appraiser tells me that I don't have a case then he beleives he will be able to move on. Risks/Concerns:: no risks or concerns noted. Progress Toward Goals/Plan:: Progress noted per pt. He reports that he has been able to focus on activities outside of the past (books, TV, etc). Beleives that he is spending less time ruminating on the past and more time in the present. While this is progress a majoriy of his day and emotions continue to be impacted by ruminations and feelings of injustive and being taken advantage of. Will continue in IOP to prevent decompensation, increase healthy coping, and improve functioning to return to full-time work. Time Stopped:: 12:45
--- NOTE | 2020-08-08 09:05 | BH.SGPN.GN ---
Behaviors/Verbalizations/Mental Status: [] Eye contact is good. Motor activity is appropriate. Appearance is neat. Speech is Appropriate. Mood is depressed. Affect is flat. Thoughts are linear and logical. No evidence of psychosis. Reviewed daily check in sheet and no reports of suicidal ideations or intent. Client Response/Progress/Benefit: [] Pt participated at times during group discussions. Attentive. Provided appropriate feedback. States that he is feeling ?happier?. Emotion for today is nervous and hesitantly optimistic. Brought up medication changes again stating that he is more alert. Shared that his parents attended a support group for family members of people with Bipolar. He hopes this will help them cope with his ?issues? better. Admits to continuing to ruminate on his ?legal issues? however believes that this is less. Anxiety about his job and if/when he can return to full-time. Progress noted per pt report. Benefited from group support, feedback, and encouragement. Will continue in IOP to prevent decompensation, increase healthy coping, and to improve functioning. Narrative Note: []
--- NOTE | 2020-08-08 10:05 | BH.SGPN.GN ---
Behaviors/Verbalizations/Mental Status: []Eye contact is fair. Motor activity is appropriate. Appearance is casual. Speech is quiet. Mood is depressed. Affect is flat. Thoughts are linear and logical. No evidence of psychosis. Client Response/Progress/Benefit: []Pt was an engaged participant in group discussions. Attentive during psycho-education on 4 types of conflict styles (Competing, Collaborating, Avoiding, and Accommodating). Worked with group to define conflict and identify how conflict is helpful. With peers identified barriers to addressing or managing conflict which included: fear of upsetting others, embarrassing self, abandonment, past negative experiences with conflict, and shutting down. Pt stated he wasn't sure what conflict style he is because he hasn't gotten his needs met despite trying to advocate for himself with certain situations. Benefited from group due to increase insight and awareness of conflict, conflict styles, and obstacles to managing conflict. Pt to continue IOP to stabilize moods, increase healthy coping and prevent decompensation. Narrative Note: []
--- NOTE | 2020-08-08 11:07 | BH.SGPN.GN ---
Behaviors/Verbalizations/Mental Status: []Client alert and oriented, neatly dressed and groomed. Eye contact good. Motor activity appropriate. Speech soft. Affect constricted, mood dysthymic. Thoughts linear, logical, no signs of hallucinations or delusions. Client Response/Progress/Benefit: []Client engaged in session AEB contributing to discussion and taking notes. Client did well to participate during the activity in which participants were challenged to eliminate various items through group consensus. Client contributed to discussion of the barriers that occurred during the activity as well as the conflict resolution strategies. Client reviewed the worksheet on fair fighting rules to cope with conflict and client selected ?no stonewalling.? Client shared he can ?shut down? during conflict and he would like to get better at self-advocacy. Appeared to benefit from learning strategies to better manage conflict. Progress noted in client?s report of being more hopeful since starting IOP. Will continue IOP tx to promote mood stability, increase application of coping skills, and improve daily functioning. Narrative Note: []
--- NOTE | 2020-08-08 13:10 | BH.MDN ---
Multi-Disciplinary Note - Note 45-min Individual Time Started:: 12:15 Date: 08/08/20 Purpose of session/treatment goals addressed:: Reviewed current symptoms and progress in IOP. Addressed treatment goals. Eye Contact:: Fair Motor Activity:: Appropriate Appearance:: Disheveled Speech:: Soft Mood:: Depressed Affect:: Flat Thoughts:: Linear, Logical, No evidence of hallucinations/delusions noted Staff Interventions:: Utilized CA techniques to elicit change behaviors. Provided support and praise for his continued efforts. Client Response:: Pt was optimistic and future-oriented today. Believes that medication changes are continuing to help his mood, slow his thoughts, and improve his concentration. He discussed how his parents have started to attend an educational and support group for families of those with Bipolar. He sees this as a huge step for him and his parents. After discussion yesterday with this therapist as well as a family friend he is begning to think about possible career options in the future. He appears to be hopeful and future-oriented rather than angry and focused on the past. States that he has begun to develop a plan to address his past rather than to spend countless hours simply researching aimlessly on google. His plan involves reaching out to certain financial services representative and the [employer]. States that if his plan does not materialize he would be willing to step away from pursuing his past injustices. Risks/Concerns:: No risks or concerns noted. Progress Toward Goals/Plan:: Significant progress noted per pt report. Reports improve concetration, decrease in racing thoughts, and feelings of hopefulness. Focusing on the possible career options. Decreasing time spent ruminating on and researching his legal options for his past injustices. Continues to report depression related to limited interaction with his daughter and ongoing child support case. Feels powerless and is fearful his daughter will be taken away from him. Will continue in IOP to maintain safety, increase healthy coping, and improve functioning. Time Stopped:: 13:00
--- NOTE | 2020-08-09 09:00 | BH.SGPN.GN ---
Behaviors/Verbalizations/Mental Status: []Client alert and oriented, casually dressed. Eye contact fair. Motor activity appropriate. Slowed speech. Affect flat, mood dysthymic and anxious. Thoughts linear, logical, no signs of hallucinations or delusions. Reviewed client?s symptom tracker, no risk or plan for suicide ideation, plan, or intent as of 08/09/20. Client Response/Progress/Benefit: []Client responded well to session, engaged throughout and participated in group discussion. Client reported feeling ?anxious and hopeful? this morning. Client noted many mental health wins like seeing his daughter virtually, reaching out to victim support specialists for support and direction, signing up for new information regarding a new career path, and talking with his real estate associate attorney. Stressors included ?having less intense racing thoughts as well as less vivid flashbacks.? Benefited from group as group members helped client reframe his stressors in a positive way. Progress noted as client was receptive to thought challenging, but he continues to struggle with delusions and ruminations.s. Will continue IOP to continue practicing healthy coping skills, prevent decompensation, and challenge negative thoughts. Narrative Note: []
--- NOTE | 2020-08-09 10:05 | BH.SGPN.GN ---
Behaviors/Verbalizations/Mental Status: []Client alert and oriented, casually dressed and groomed. Eye contact good. Motor activity appropriate. Speech within normal limits. Affect constricted, mood dysthymic. Thoughts linear, logical, no signs of hallucinations or delusions. Client Response/Progress/Benefit: []Client engaged participant AEB contributions during discussion, engaged during activity and attentively listened to peers. Group reported even though change can be scary, change can be positive. Discussed how change can lead to improved mental health and relationships. Client worked with the group to identify barriers to making change, which included: fear of failure, anxiety, past experiences, comfortable with status quo, and putting others first. Client participated in the activity where they identified and discussed the emotions related to change. Client stated he has a fear of the unknown when in preparation stage which can sometimes be a barrier for himself. Benefited from increased awareness and understanding of emotions, benefits, and barriers related to change. Will continue IOP tx as client can benefit from reducing anxious symptoms, improving daily functioning, and preventing decompensation.
--- NOTE | 2020-08-09 11:05 | BH.SGPN.GN ---
Behaviors/Verbalizations/Mental Status: []Client alert and oriented, casually dressed and groomed. Eye contact good. Motor activity appropriate. Speech soft. Affect constricted, mood dysthymic. Thoughts linear, logical, no signs of hallucinations or delusions. Client Response/Progress/Benefit: []Client responded well to session AEB taking notes and actively participating. Client contributed during psychoeducation on the change process and different emotions in each stage of change. Client also contributed during the activity. Client identified a change client would like to make to improve mental health which was to research a new career path. Client reports belief he is currently in between the preparation and action stages as client has made calls and explored options, but has not chosen anything yet. Client contributed during group discussion on using a decisional balance tool to promote change. Appeared to benefit from identifying what stage of change client is in and creating a small goal. Will continue IOP tx to improve mood stability, reduce negative thinking, and improve daily functioning. Narrative Note: []
--- NOTE | 2020-08-12 09:00 | BH.SGPN.GN ---
Behaviors/Verbalizations/Mental Status: []Client alert and oriented, casually dressed. Eye contact fair. Motor activity appropriate. Speech within normal limits. Affect constricted, mood dysthymic and anxious. Thoughts linear, logical, no signs of hallucinations or delusions. Reviewed client?s symptom tracker, no risk for suicidal ideation, plan, or intent as of 08/12/20. Client Response/Progress/Benefit: []Client responded well to session, engaged throughout and participated in group discussion. Client reported feeling ?angry? this morning after identifying his stressors. Client stated ?I am spiraling? in regards to his low weekend. Shared to group that his ruminations have increased as he constantly thinks about the past before leaving [place]. Reports a regression and noted his paranoia of being watched by surveillance. Client had difficulty recognizing his mental health wins but stated he looked into a new career path. Benefited from group as client was unable to recognize healthy coping skills and other group members gave positive insight and ideas to improve client?s mental health. Progress limited as client still ruminates on the past and struggles to utilize healthy coping skills. Will continue IOP to learn and use healthy coping skills, prevent decompensation, and challenge negative thoughts. Narrative Note: []
--- NOTE | 2020-08-12 11:04 | BH.MDN_ITS ---
Multi-Disciplinary Note - Note Family Time Started:: 09:30 Date: 08/12/20 Purpose of session/treatment goals addressed:: Pt's parents arrived to [facility] unexpectedly requesting to speak with therapist. Had a family session with patient. Eye Contact:: Fair Motor Activity:: Restless Appearance:: Disheveled Speech:: Soft Mood:: Depressed Affect:: Flat Thoughts:: Linear, Other - Pt reports increased ruminations over the weekend on past events specifically injustices stating I can't handle not doing anything about it. Staff Interventions:: Listened too and addressed concerns of parents. With consent of patient updated parents on treatment progress. Family session was unexpected and goals were not planned prior however was able to identify and clarifiy parents' concerns and desire to increase communication with patient and his treatment team. Client Response:: Parents met with therapist stating I know that he does not have a release however we were hoping that you could listen to our thoughts. Therapist agreed and they presented therapist with a typed letter of thier concerns. Pt has not been providing parents with any information regarding [facility] level of care. Parents are hoping to be more involved in pt's therapy. Patient entered and verbally agreed to release of information to parents and we continued to discuss progress, concerns, and distress. It is clear that pt may have been minimizing his distress and exagerating his progress to [facility] staff as he had reported significant progress last week. Parents reports that at his job and during outside functions he is able to put on a good face where others do not know about his distress. Pt tearful regarding his percieved injustices I can handle it not going my way but I can't handle not doing anything about it. Focused on struggles with letting others get away with wrongs committed towards him and making sure they are held accountable in the courts. This is how things should work. He talked about making the call and placing a criminal compliant as being important which he has not done. Parents shared thier emotions and feelings stressing they don't know how to handle his constant ruminations and focus on legal action towards those in [place]. Mother is frustrated she cannot help him and is taking this on herself. Father is frustrated and feels there is little hope for patient if he does not move on. Pt is unable to move on till some legal action is strated or taken. Parents are hoping to just have conversations with pt about normal things like the weather and his day rather than exclusively on past injustives. Risks/Concerns:: No risks identified by patient or parents regarding self-harm. Progress Toward Goals/Plan:: Limited progress. Unclear on past progress and discussions as it appears pt has not been honest with therapist on improved mood and decreasing focus on past events. Contradicting statements from parents. Parents discussed wanting therapy to focus more on perceived injustices and misinterpretations of the events in [place]. Therapist had spent previous weeks building rapport and trust as well as focusing on managing distress, worry, and anger when percieved injustices enter the mind. Also been focused on identifying and addressing the present and future. Challanging percieved injustives and misinterpretations can have negative results leading pt to exit therapy or percieve that therapist is agaisnt him or views him as crazy. The family session was helpful. Pt did agree to signing release for parents. Family hugged at the end. Pt needed redirected several times to focus on current conversation and goals rather then discuss past injustices. He feels that he has to focus all his attention on one thing at time and cannot focus on other concerns due to entire focus being on the past. Pt reports benefit from IOP and wants to continue. Will collaborate further with psychiatrist and IOP staff. Time Stopped:: 11:00
--- NOTE | 2020-08-14 09:05 | BH.SGPN.GN ---
Behaviors/Verbalizations/Mental Status: [] Eye contact is good. Motor activity is appropriate. Appearance is disheveled. Speech is Appropriate. Mood is depressed. Affect is flat. Thoughts are linear and logical. No evidence of psychosis. Reviewed daily check in sheet and no reports of suicidal ideations or intent. Client Response/Progress/Benefit: [] Pt participated at times during the group discussions. Emotion for today is anxious. Mental health wins included opening up to his parents more and slowly returning back to work. Pt states that he is going to be going back to work 3 days a week. He is anxious about returning due increased ruminations while working and limited distractions. Group provided some feedback regarding managing ruminations which was beneficial. Progress noted per pt report. Will continue in IOP to prevent decompensation, improve coping skills, and improve functioning. Narrative Note: []
--- NOTE | 2020-08-14 10:10 | BH.SGPN.GN ---
Behaviors/Verbalizations/Mental Status: []Client alert and oriented, neatly dressed and groomed. Eye contact good. Motor activity appropriate. Speech soft. Affect flat, mood dysthymic. Thoughts linear, some evidence of potential paranoia. Client Response/Progress/Benefit: []Client was an engaged participant AEB taking notes and contributing to discussion. Connected with group topic of perspective and the impacts of one?s perspective on mental health. Client stated that perspective is ?not the whole truth? and the group discussed how depression and anxiety can create a distorted perspective. Client worked with the group to identify how a negative perspective can impact mental health which included: self-fulfilling prophecy, keeping people stuck in toxic relationships, and overgeneralizing. Client appeared to benefit from increasing understanding of mental health benefits of a positive perspective and potential consequences to progress when perspective is negative. Client appears to be making progress while at IOP, however, client and his family report client struggles with mood stability outside of IOP. Client will continue IOP tx to prevent decompensation, improve daily functioning, and monitor psychosis. Narrative Note: []
--- NOTE | 2020-08-14 12:18 | PCM.BH.PN ---
Progress Note Progress Note: History of Present Illness/Interim History: [] The patient is a 35-year-old male who is seen in follow-up at the [facility] behavioral health IOP program I last saw the patient 1 week ago and at that time his Seroquel was left the same at 200 mg since he had only been on it for 1 week. We started on weaning the Lexapro and we decreased it to 5 mg for 1 week and now he will take 5 mg for 1 more week and then will discontinue the Lexapro around August 21, 2020. Patient states that he feels mostly better. His mood is a little better and he feels like his anxious rumination over his paranoia and conspiracy theory may be slightly easier to ignore but is still strongly present. On weekends he struggles a lot more because he works on the weekends and during his work he ruminates a lot of the time when he is not in the IOP program. He said that this week he is able to read and watch TV better insofar as he still has some delusions of reference where he feels there talking about him but he is able to distract himself from this a little bit easier in order to actually read or watch TV. The patient admits that he is still depressed but he kind of feels that he is depressed for a reason. And otherwise he feels he is depressed because all these horrible bad things have happened to him because of the conspiracy theory and because people of been out to get him. At home it is easier to distract himself but the paranoia and conspiracy theory is always there and always prominent in his thinking. His parents are supportive but they do not want to talk to him about his paranoia or conspiracy at all. The patient's energy level he describes is good and he is tolerating the Seroquel well. His sleep is good at 8 or 9 h a night. He denies passive thoughts of , suicidal ideation, homicidal ideation and any other hallucinations or delusions other than the ones discussed above. A letter was also reviewed from his parents which discussed the patient's paranoia and how he refuses to talk to them about anything really but his paranoia and conspiracy theory. In addition the patient apparently tells his parents things that are inconsistent with what he is telling is here and what our staff is experiencing here. Current Psychiatric Medications: [] Lexapro 5 mg p.o. daily (x1 week, to DC in 1 more week); Lamictal 150 mg p.o. daily; Seroquel XR 200 mg p.o. nightly (increased 2 weeks ago). Mental Status Examination: [] Patient is a 35-year-old male who appears normal for stated age and is seen wearing a mask due to the pandemic. He is casually dressed and groomed with good hygiene. He has good eye contact. Speech is normal rate and rhythm and fluent with no pressure. Mood is depressed. Affect is constricted. Thought process is goal-directed and organized. Thought content: There is evidence remaining of delusions of paranoia and some delusions of reference. There is no evidence of suicidal ideation, thoughts of , homicidal ideation, or hallucinations. Impulsivity is moderate. Insight: Limited. Judgment: Intact. Diagnoses: [] [place] I: [] Bipolar 1 disorder, most recent episode depression, severe with psychosis; rule out schizoaffective disorder, bipolar type [place] II: [] Rule out paranoid personality disorder in addition to the above [place] III: [] Negative [place] IV:[]] Primary support, job, financial issues Plan: [] The patient will continue the IOP program at [facility] as the structure, support, education, individual and group therapy will hopefully prevent worsening of the patient's symptoms which might require hospitalization. He felt safe during the interview and if it anytime he does not feel safe he will let us know or go to the emergency room. The risk, options, possible complications and side effects of the medications and the weaning of the Lexapro and the increasing of the Seroquel were discussed with the patient and he understands and accepts these. He agrees to continue the plan as stated above for the Lexapro discontinuation in 1 week. In addition he agrees to increase his Seroquel XL to 300 mg p.o. nightly. Prescription is sent in for this. #30 and 0 refills.
--- NOTE | 2020-08-14 15:32 | BH.MDN ---
Multi-Disciplinary Note - Note 45-min Individual Time Started:: 12:15 Date: 08/21/20 Purpose of session/treatment goals addressed:: Reviewed progress and current symptoms. Addressed treatment plan goals Eye Contact:: Good Motor Activity:: Appropriate Appearance:: Disheveled Speech:: Soft Mood:: Depressed Affect:: Flat Thoughts:: Linear, Logical, Other - ruminations and misinterpretations of past events., No evidence of hallucinations/delusions noted Staff Interventions:: Utilized ID techniques to elicit change behaviors. Praised pt for signing releases and being more open with his parents and support. Client Response:: Pt went the whole session w/o discussiong injustices and the events in [place]. He shared having a more open conversation with his parents over the weekend. He discussed some misperceptions they had and he worked to further explain. Per his report this helped clarify his current mood, his progress, and his future plans. Shared that his mother is a problem solver and internalizes the family stressors and this can be trigger for him. Insight that keeping her more involved in his treatment could help his mother cope. Pt was positive and future-oriented today. He is anxious about returning to work as he finds that this is a time when his ruminations are most intense. I'm alone with my thoughts and they wonder. He wants to work more to help offset some financial issues and is planning to work tomorrow. Risks/Concerns:: none reported Progress Toward Goals/Plan:: Progress noted per pt. While ruminations about the past continue to take up a majortiy of his thoughts he is currently reporting that since starting IOP this has improved. Signed releases for his parents and agreed to have therapist send referral for outpatient psychiatrist. More open to involving others in his treatment. Showed this therapist a snow scuplture he made yesterday while snowed in. Spoke with psychiatrist and she increased Seroquel and has plan to continue to do this to help with ruminations and misinterpretations of past events. Will continue in IOP. Time Stopped:: 13:00
--- NOTE | 2020-08-16 09:00 | BH.SGPN.GN ---
Behaviors/Verbalizations/Mental Status: []Client alert and oriented, casually dressed. Eye contact fair. Motor activity appropriate. Speech within normal limits. Affect constricted, mood anxious and dysthymic. Thoughts linear, logical, no signs of hallucinations or delusions. Reviewed client?s symptom tracker, no risk or plan for suicide ideation as of 08/16/20. Client Response/Progress/Benefit: []Client responded well to session, engaged throughout and participated in group discussion. Client reported feeling ?anxious? this morning as client shared increasing the amount of time he spends at work as a distraction from ruminating. Client reported his goals of ?increasing the amount of time to avoid ruminating or thinking about the next panic attack? by using healthy coping skills such as healthy distractions. Benefited from group as group members helped client identify healthy coping skills such as journaling, playing games, doing puzzles, and talking to support to help as healthy distractions. Identified a stressor as having a call with his contracts attorney, and was able to identify two healthy things he could do prior to his phone call to help lessen his anxiety. Progress noted as client reports using SMART goals. Will continue IOP to prevent decompensation, improve daily functioning, and promote the use of healthy coping skills. Narrative Note: []
--- NOTE | 2020-08-16 10:05 | BH.SGPN.GN ---
Behaviors/Verbalizations/Mental Status: [] Eye contact is good. Motor activity is appropriate. Appearance is disheveled. Speech is soft. Mood is depressed. Affect is flat. Thoughts are linear and logical. No evidence of psychosis. Client Response/Progress/Benefit: [] Pt was an active participant in group discussion and completed group worksheet. Attentive. Provided appropriate feedback. Group worked together to define anger and discussed the ways anger can impact one internally and externally. Pt identified external ways that he commonly expresses his anger which includes; substance use and isolation. Benefited from group by increasing understanding of the impact of anger on mental health. Will continue in IOP to prevent decompensation, medication management, and to decrease ruminations. Narrative Note: []
--- NOTE | 2020-08-16 11:00 | BH.SGPN.GN ---
Behaviors/Verbalizations/Mental Status: []Client alert and oriented, neatly dressed and groomed. Eye contact good. Motor activity appropriate. Speech within normal limits. Affect flat, mood dysthymic. Thoughts linear, logical, no signs of hallucinations or delusions. Client Response/Progress/Benefit: []Pt was engaged throughout AEB contributing to group discussion and self-reflection. Pt contributed as the group provided examples of physical warning signs for anger and identified personal warning signs. Pt reported he struggles to identify warning signs as pt shared ?I go from 0-100 really quick.? Pt also shared belief that he has been ?at a low boil of anger? for years. Pt contributed as group brainstormed healthy coping skills for better managing anger which included: music, walking/exercise, meditation, reflecting on consequences, and grounding. Pt appeared to benefit from identifying different techniques to manage anger as well as gaining awareness of potential consequences of unmanaged anger. Pt selected using the 5 senses as the coping skill pt would like to try to regulate anger. Pt reports his medication has been improving pt?s mood and reducing racing thoughts. Pt continues to struggle with communicating with supports and ruminating on the past. Will continue IOP tx to prevent decompensation and improve daily functioning. Narrative Note: []
--- NOTE | 2020-08-16 14:14 | BH.MDN ---
Multi-Disciplinary Note - Note 30-min Individual Time Started:: 12:20 Date: 08/16/20 Purpose of session/treatment goals addressed:: Reviewed current progress and symptoms. Addressed treatment plan goals. Eye Contact:: Good Motor Activity:: Slowed Appearance:: Disheveled Speech:: Soft Mood:: Depressed Affect:: Flat Thoughts:: Linear Staff Interventions:: Praised pt for his efforts. Provided encouragment. Challenged pt to focus on present and actions that he has control over today. Client Response:: Pt reports that he felt he was better able to manage his ruminations better at work. Attributes this to increased medication and completing current tasks. Has appointment with his child support human resources team member phuong. Spending more time with support (grandfather) however did discussion his past injustices with him. Has been making an effort to talk about other things with his parents. States he feels that he has do do something to address the past injustices. Has phone interview with civil rights human resources team member next week. I don't know if I will ever move on if I don't try. Challenged him to focus on the present as predicting the future is impossible. What is he able to do today to help himself emotional? Risks/Concerns:: none reported Progress Toward Goals/Plan:: Progress noted per pt report. Refer above. Medication and IOP appear to be helping him focus more on present and less on the past. Ruminations are still present and overwhelming however pt reports decreased intensity. Will begin to focus more on how to manage the distress, worry, and emotions when delusions enter the mind. Review triggers and reactions. Time Stopped:: 12:45
--- NOTE | 2020-08-19 10:00 | BH.SGPN.GN ---
Behaviors/Verbalizations/Mental Status: [] Client alert and oriented, casually dressed and groomed. Eye contact good. Motor activity appropriate. Speech within normal limits. Affect congruent, mood anxious and dysthymic. Thoughts linear, logical, no signs of hallucinations or delusions. Client Response/Progress/Benefit: [] Client somewhat active participant AEB providing input to discussion, asking questions, and listening attentively to peers. Reported connecting to topic of social supports. Group identified the benefits of having a support system such as: emotional release, ability to rebound quicker after a setback, gain perspective, and not feeling alone. Group discussed different types of support, and client noted doctors as potential resources. Group also discussed the barriers to accessing support in which client noted limited resources and lack of access to supports as a barrier he struggles with. He did well to engage in the social support activity AEB actively working with the group to complete task at hand. Seemed to benefit from increased awareness of potential benefits of social support. Progress noted in client?s improved group participation, though continues to struggle with mood impacting engagement. Will continue IOP tx to promote gains and further reduce mental health sx. Narrative Note: []
--- NOTE | 2020-08-19 10:46 | BH.MDN ---
Multi-Disciplinary Note - Note 60-min Individual Time Started:: 09:05 Date: 08/19/20 Purpose of session/treatment goals addressed:: Reviewed current symptoms and progress in IOP. Addressed IOP goals. Eye Contact:: Fair Motor Activity:: Appropriate Appearance:: Disheveled Speech:: Appropriate Mood:: Irritable Affect:: Congruent Thoughts:: Linear, Logical, Other - Delusions or misinterpretations of past events. Staff Interventions:: Utilized [place] techniques to elicit change behaviors. Challenged ruminations about past injustices. Allowed pt to vent thoughts. Worked with pt to identify ways to manage triggers and distress associated with ruminations. Spoke with his mother over the phone to discuss family concerns. Client Response:: Pt reports increased rumination and frustrations over the weekend mainly related to a negative interaction with his cloud developer on Wednesday. Currently working with a cloud developer for child support modifications. According to patient the cloud developer had suggested seeking different clinical mental health counselor and he believes she has been giving him contradicting advice. This was frustrating and led to him googling resolutions and focusing on legal recourse which is a trigger to ruminating and focusing on past injustices. Pt believes that his father is frustrated as well and feels that pt is not putting his focus and priority on current child support case. Pt has hard time focusing soley on this because he has numerous priorities. After discussion pt has insight that child support modification is currently most pressing and if addressed can decrease distress. Not sure what his next step will be with current cloud developer however states he will communicate and work with parents. Processed how to manage emotions and thoughts associated with current legal set-back. Processed how to maintain mental health and prevent decompensation and further ruminations this week. Risks/Concerns:: No risks or concerns noted. Progress Toward Goals/Plan:: Regression over the weekend. Pt reports increased communication with parents however just recieved another letter from mother indicating differently. Pt's misinterpretations or delusions regarding past injustices are very ingrained and intertwinded with daily functioning. These delusions have been occuring for over 5 years. Currently working to increase skills to manage distress when triggered as well as ways to decrease extensive rumination. Challenging and working with patient to work on the present and future. Gets defensive when past injustices are seen as non-existant or delusional. It is very challenging to overtly challenge these as he lived alone in [place] for those 5 years and did not communicate with friends or parents. Aside from him no collaboration of what acutally occured. Time Stopped:: 10:05
--- NOTE | 2020-08-19 11:13 | BH.SGPN.GN ---
Behaviors/Verbalizations/Mental Status: []Client alert and oriented, neatly dressed and groomed. Eye contact good. Motor activity appropriate. Speech soft. Affect flat, mood dysthymic. Thoughts linear, logical, no signs of hallucinations or delusions. Client Response/Progress/Benefit: []Client an active participant throughout AEB contributing to discussion, taking notes, and providing supportive feedback. Client participated in the group activity highlighting the various barriers to effectively utilizing supports and strategies the group used. Client participated in discussion of the four types of support (emotion, tangible, informational, and social) and gave examples for all types. Client reports wanting to work on increasing informational support and he plans to do this by calling an agency out of [facility] where client used to live. Client shared this will benefit him because it will help client solve his legal issues. Client seemed to benefit from identifying the type of support client wants to improve. Client to continue in IOP tx to prevent decompensation, reduce ruminations, and improve ability to function on a daily basis. Narrative Note: []
--- NOTE | 2020-08-20 10:16 | BH.MDN ---
Multi-Disciplinary Note - Note 60-min Individual Time Started:: 09:00 Date: 08/20/20 Purpose of session/treatment goals addressed:: Reviewed current symptoms and progress in IOP. Addressed treatment plan goals. Eye Contact:: Good Motor Activity:: Appropriate Appearance:: Casual Speech:: Appropriate Mood:: Depressed Affect:: Flat Thoughts:: Linear, Logical, Other Staff Interventions:: Identified and challenged prevailing mistaken belief. Worked with pt to identify ways to manage triggers that cause ruminations. Client Response:: Pt started the sessions be reporting I'm realizing that I have an unhealthy obession with past events and its impacting presently. This led to a discussion of triggers to his intrusive thoughts. He identified social chin and [employer] packages as triggers which lead to thoughts about past injustice and his belief that he needs to fight the injustices. Feels that he does not continue to seek justice he is letting others bully him. This belief I have to fight wrongs at all costs seems to be the mistaken belief that has caused significant negative consequences in his life as he can never move on or accept the outcomes of past events. Spent several minunites challenging this mistaken belief and how its not always beneficial to fight. Gave examples. Also challenged some of his perspectives on what occured on [place]. Pt was quiet and had difficulty with these challenges. Reports that it is difficulty to accept that not fighting wrongs is beneficial. Overall he agreed to only spend 3 hours a week researching legal recourses. We also identify a couple strategies to help minimize the impact of ruminations when triggered. Risks/Concerns:: none reported. Progress Toward Goals/Plan:: Some progress noted. More insight that his current persepctives are unhealthy and obsessive needing to change. This is significant as he has never said this himself. His daughter is his primary motivation and he beleives that jose will be a compensation invloved if he can prove wrong-doing in the past. This compensation will help him with his debt and get him closer to moving back to [place] to be closer to his daughter. Not only does he believe he needs to fight injustive but also sees this resulting in a settlement. When it was noted that he could let this go, stablize mentally, get a career, and still reach his goals he states you're right. Plan is to continue in [facility]. Despite intensive counseling on almost daily basisi and medication mgmt pt continues to have his functioning impacted by emotions related to ruminations on past events. Time Stopped:: 10:10
--- NOTE | 2020-08-21 08:57 | BH.SGPN.GN ---
Behaviors/Verbalizations/Mental Status: [] Eye contact is fair to good. Alert and oriented. Motor activity is appropriate. Appearance is casual. grooming is appropriate. Speech is Appropriate. Mood is depressed and anxious. Affect is constricted. Thoughts are linear and logical. No evidence of psychosis or hallucinations. Client Response/Progress/Benefit: [] Pt engaged in session AEB listening to others, providing feedback, and willingness to share thoughts and feelings with group. Pt did well to identify personal wins, noting he had ?several emotional wins?. Shared that he was able to spend time with his daughter on [employer] which aided in improving his mood and helped to feel more connected to himself. Expressed ?I haven?t really felt like a father in a long time so this was nice?. Pt noted additional mental health positive as challenging himself to use writing as a creative outlet in regard to ongoing legal issues. Shared this was challenging but was helpful in giving him a different perspective. Notes that his current child custody case is a stressor as he has no control over what is happening with the case. Able to identify areas where he can feel in control in order to better cope with the unknowns. Recommended continued IOP tx to continue addressing mental health sx management and prevent decompensation. Narrative Note: []
--- NOTE | 2020-08-21 10:10 | BH.SGPN.GN ---
Behaviors/Verbalizations/Mental Status: []Client alert and oriented, neatly dressed and groomed. Eye contact good. Motor activity restless. Speech soft. Affect flat, mood dysthymic. Thoughts linear, logical, no signs of hallucinations or delusions. Client Response/Progress/Benefit: []Pt was an active participant in group discussion and was attentive during psychoeducation. Provided input on the quote of the day and shared ?past experiences impact automatic thoughts.? Group was primarily educational and introduced and gave examples of the 10 cognitive distortions. Pt provided some examples of personal experiences for certain cognitive distortions such as disqualifying the positives. Benefited from education and increased awareness of cognitive distortions and role that they play in negative thoughts and emotions. Based on pt?s presentation in IOP tx, he appears to be making progress with challenging perspective and learning coping skills. However, pt?s parents continue to report delusional and obsessive thinking at home. Will continue IOP tx to prevent decompensation and monitor psychosis. Narrative Note: []
--- NOTE | 2020-08-21 12:03 | PCM.BH.PN ---
Progress Note Progress Note: History of Present Illness/Interim History: [] The patient is a 35-year-old male who is seen in follow-up at the [facility] behavioral health IOP program. I last saw the patient 1 week ago and at that time his Seroquel was increased to 300 mg p.o. nightly. He has been tolerating this well and he feels more hopeful and he has more motivation. His energy level during the day remains pretty high. He is sleeping about 8 or 9 hours a night. He is still somewhat perseverating on his conspiracy theory and paranoia but the patient feels he is ruminating much less when he is in the IOP program. He is a little nervous when he is at work. He states that he is able to read and watch TV better and is able to separate himself from the plot of the book or TV show much better than he was before. He still has some tendency to think that they are talking about him but it is much less. He remains delusional in terms of his paranoia and conspiracy theory. He states that he is still seeing a wool hat hydraulicker to have his child support decreased because his employment earnings have been up and down mostly trending downward over the last 5 years. He is considering writing a book about what has happened to him in the past. He says that it is a little easier to have the paranoia and not be quite as strong as it was. He is now able to settle himself okay it happened and how do I go forward from here. This is an improvement. He feels he is not able to put more energy and to how he can go forward as opposed to before when all as he did was ruminate negatively about these issues. He is tolerating the wean of the Lexapro and will discontinue it today. His mood has steadily improved over the past several weeks. Current Psychiatric Medications: [] Lexapro 5 mg p.o. daily (last day of weaning is today and he will stop it tomorrow); Lamictal 150 mg p.o. daily; Seroquel XR 300 mg p.o. nightly (this dose for 2 weeks now). Mental Status Examination: [] Patient is a 35-year-old male who appears normal for stated age and is seen wearing a mask due to the pandemic. He is casually dressed and groomed with good hygiene. He has good eye contact and speech is normal rate and rhythm and fluent with no pressure. Mood is still somewhat depressed. Affect is constricted. Thought process is goal-directed and organized. Thought content: There is evidence remaining of delusions of paranoia and conspiracy. Delusions of reference are resolving somewhat. There remains perseveration on the idea of what he has gone through in terms of being watched and conspired against over the past 5 years. There is no evidence of suicidal ideation, thoughts of , homicidal ideation or hallucinations. Impulsivity is moderate. Insight: Limited. Judgment: Intact. Diagnoses: [] [place] I: [] Bipolar 1 disorder, most recent episode depression, severe with psychosis; rule out schizoaffective disorder, bipolar type [place] II: [] Rule out paranoid personality disorder in addition to the above [place] III: []. Negative [place] IV:[]] Primary support, job, financial issues Plan: [] Patient will continue the IOP program at [facility] as the structure, support, education, individual and group therapy will hopefully prevent worsening of the patient's symptoms which might require hospitalization. He felt safe during the interview and if it anytime is not feel safe he will let us know or go to the emergency room. The risks, options, possible complications and side effects of medications were again discussed with the patient and he understands accepts these. He will stop his Lexapro as scheduled tomorrow. He agrees to increase his Seroquel XR to 400 mg total p.o. nightly. Prescription was sent in for this. #30 and 0 refills. He will continue to follow-up with his outpatient providers and he has a appointment with a new psychiatrist set up for September 11, 2020.
--- NOTE | 2020-08-21 12:18 | BH.COMM_ITS ---
Communication Note - Communication with Client Communication Note: Prescription for Seroquel XR 400mg every HS daily called in to [facility] in [place] at this time per Dr. Natarajan's request.
--- NOTE | 2020-08-23 10:12 | BH.SGPN.GN ---
Behaviors/Verbalizations/Mental Status: [] Client alert and oriented, casually dressed and groomed. Eye contact good. Motor activity appropriate. Speech within normal limits, limited input provided. Affect constricted, mood depressed, anxious. Thoughts linear, logical, no signs of hallucinations or delusions. Client Response/Progress/Benefit: []Client was a semi-active participant AEB listening throughout discussion, taking notes, and engaging in group activity. Connected with the topic of pitfalls and indicated that pitfalls can result from the desire for ?instant success?. She contributed to the group discussion on barriers that keep them from choosing a healthier path to mental wellness such as pitfalls. Group worked together to identify examples of personal pitfalls which included; distorted thinking, lack of motivation, fear of failure, self-blame, and unhealthy coping. Client declined to share own personal pitfalls, though reported agreeing with other?s examples such as unhealthy coping. Engaged during the activity as evidenced by listening to participants and providing feedback at various points throughout. Continues to struggle with engagement though. Client benefited from group as she learned to better identify potential barriers to improving mental health symptoms. Client will continue IOP to increase the consistent use of healthy coping skills, reduce mental health sx, and prevent decompensation. Narrative Note: []
--- NOTE | 2020-08-23 10:24 | BH.MDN_ITS ---
Multi-Disciplinary Note - Note 60-min Individual Time Started:: 09:05 Date: 08/23/20 Purpose of session/treatment goals addressed:: Reviewed current functioning and stressors. Addressed trigger management strategies Eye Contact:: Fair Motor Activity:: Appropriate Appearance:: Casual Speech:: Appropriate Mood:: Irritable, Depressed Affect:: Congruent Thoughts:: Linear, Logical, Other - Focused on past injustices which are impacting current functioning. Staff Interventions:: Education on managing triggering thoughts and discussed some strategies. Allowed pt to vent and process recent setback. Pointed out cognitive distortions and challenged mistaken beliefs. Client Response:: Pt spoke with civil rights technical services manager yesterday evening. Reports that the technical services manager stated that he may have a case however it would be quite a financial cost. She basically stated good luck with therapy and I hope it brings you peace which he believed was condescending. The belief that the judicial system only benefits those with money is a takeaway that he got from the conversation. He was angry and admitted to being upset with parents. Tearful. This was a setback. Therapist attempted to focus on ways to manage set-backs however limited benefit initially. Towards that end to the session was more open to the discussion of managing setbacks. Remains focused the he has to win and if he doesn't pursue the case he is losing. Pointed out absolute thinking and discussed middle ground. Gave examples. Was upset with parents because they are not as upset as him. I know these things yesterday was just a bad day. Risks/Concerns:: No risks or concerns noted. Denies any ideations to harm self or others. Upset and tearful. Protective factor is daughter. Future-oriented. Progress Toward Goals/Plan:: Regression noted due to setback last night. Hopeless and angry. Short-term this is distressing however it may be a step closer to pt moving on from purusing past injustices which are impacting current mental health. Attempted to focus on the emotions and managing the setback which was beneficial at times. Challenged cognitive distortions of absolute thinking such as I will never get out of dept ... I will never be able to live independently. Attempted to work on managing triggers however pt preferred to use the session to vent and process recent setback. Pt adjusting to medication changes and beleives they are helping his mood and racing thoughts.Towards end of session more relaxed and smiling. Has plan to spend time and cook with extended family tonight. Plan is to continue in IOP to prevent decompensation, increase support, and improve functioning. Spoke with pt's outpatient counselor Hetal yesterday and he is going to continue with her after IOP. Pt believes that he feels comfortable returning to work 4 days a week due to progress. He wishes to attend IOP 3 days next week. Time Stopped:: 10:05
--- NOTE | 2020-08-23 11:13 | BH.SGPN.GN ---
Behaviors/Verbalizations/Mental Status: []Client alert and oriented, neatly dressed and groomed. Eye contact good. Motor activity appropriate. Speech within normal limits. Affect flat, mood dysthymic. Thoughts linear, logical, no signs of hallucinations or delusions. Client Response/Progress/Benefit: []Client receptive of session, engaged throughout AEB client participating to discussion and taking notes. Client completed a worksheet where client identified personal pitfalls that could impact mental health progress. Client?s pitfalls included: withdrawing from supports, self-sabotage, and avoidance. Attentive and contributing during group brainstorm of strategies to overcome pitfalls. Client will work on overcoming pitfalls by using opposite action and reaching out to healthy supports. Benefited from identifying personal pitfalls and strategies to overcome these pitfalls. Will continue IOP tx to prevent decompensation, monitor psychosis, and increase insight. Narrative Note: []
== END 2020-08-25 23:59 ==
LOC: BHIOP 09:00
PROVIDERS: PCP Family Medicine; Referring Provider Psychiatry & Neurology Psychiatry; Visit Provider Psychiatry & Neurology Psychiatry
DX: F31.5 Bipolar disorder, current episode depressed, severe, with psychotic features (principal); Z79.899 Other long term (current) drug therapy
CPT/HCPCS: 90792; 99213; H0035; H2012; H2020; T1002; 90832; 90834; 90837

== ENCOUNTER 2020-08-26 09:00 | Outpatient (RCR) | payer MEDICAID, SELFPAY ==
[2020-01-26 09:18] VITALS: BMI 22.3
[2020-08-26 00:35] VITALS: BP 137/88; PULSE 86
--- NOTE | 2020-08-26 09:00 | BH.SGPN.GN ---
Behaviors/Verbalizations/Mental Status: []Client alert and oriented, casually dressed. Eye contact fair. Motor activity appropriate. Speech within normal limits. Affect constricted, mood anxious. Thoughts linear, logical, no signs of hallucinations or delusions. Reviewed client?s symptom tracker, no risk or plan for suicide ideation, plan, or intent as of 08/26/20. Client Response/Progress/Benefit: []Client responded well to session, engaged throughout and participated in group discussion. Client reported feeling ?calm? this morning. Client had a positive check-in and shared his positives as finding healthy and trustworthy support. Identified healthy distractions, medication, and reframing negative thoughts as healthy coping skills when feeling depressed. Benefited from group as client connected with peers on improving healthy coping skills and demonstrated breathing exercises. Progress noted as client continues to work on his goal of ?minimizing the time to ruminate.? Will continue IOP to reframe negative thoughts, improve mood, and continue the use of healthy coping skills. Narrative Note: []
--- NOTE | 2020-08-26 10:07 | BH.SGPN.GN ---
Behaviors/Verbalizations/Mental Status: []Alert and oriented. Eye contact is fair. Motor activity is appropriate. Appearance is casual. Speech is Appropriate. Mood is dysthymic. Affect is constricted. Thoughts are linear and logical. No evidence of psychosis. Client Response/Progress/Benefit: []Pt was an active participant in group discussion and activity. Connected with quote. Stated he doesn't believe that growth can happen by chance. Reported there are many situations that occur that are out of our control but we can focus on how we respond to the uncontrollable. Attentive during psychoeducation. Pt worked with group to identify forces that can impact growth and overall mental health. Worked with group to identify internal and external forces of life. Pt benefited from increased awareness of the impact positive and negative forces can have on mental health and personal growth. Will continue in IOP to stabilize moods, increase use of healthy coping and prevent decompensation. Narrative Note: []
--- NOTE | 2020-08-26 11:10 | BH.SGPN.GN ---
Behaviors/Verbalizations/Mental Status: [] Eye contact is good. Alert and oriented. Motor activity is appropriate. Appearance is casual. grooming is appropriate. Speech appropriate. Mood is anxious and depressed. Affect is congruent. Thoughts are linear and logical. No evidence of psychosis or hallucinations. Client Response/Progress/Benefit: [] Pt receptive of session, listened attentively to peers and provided input throughout group discussion. Group processed the activity and identified positive and negative forces impacting ability to complete the challenge. Pt was attentive during psychoeducation and appeared to benefit from increased insight on the impact of negative and positive forces on mental wellness. Shared that not addressing negative forces can continue to increase negative mental health sx. Identified wanting to improve his negative force of ruminating on things outside his control by setting aside time to engage in healthy distraction. Shared wanting to look into different healthy activities he could do. Pt recommended continued IOP tx to improve healthy coping skills, decrease anxious thoughts and prevent decompensation. Narrative Note: []
--- NOTE | 2020-08-26 15:44 | BH.MDN ---
Multi-Disciplinary Note - Note 45-min Individual Time Started:: 12:15 Date: 08/26/20 Purpose of session/treatment goals addressed:: Review progress over the weekend and in the program. Eye Contact:: Good Motor Activity:: Appropriate Appearance:: Casual Speech:: Appropriate Mood:: Euthymic Affect:: Full Thoughts:: Linear, Logical, No evidence of hallucinations/delusions noted - significant ruminations regarding past injustices. Staff Interventions:: Attempted to discuss distress management from triggers. Client Response:: Pt presents today in good spirits. First time in the program and in session were he was not wearing a stocking hat. Haircut this weekend. Admits that this weekend was challenging and there was some tension with his mother. Insight that his discussions and ruminations on past injustices was the trigger and how this is overwhelming his mother. Able to identify ways to decrease tension and improve relationship however chooses not to do this. Instead feels parents aren't supportive of him seeking workers compensation legal secretary or pursing criminal charges cortney previous associates in [place]. Obession with percieved injustices. Notes that he spoke with family friend Prince who is deajanet at his [employer]. Claims this man is also law enforcement. Conversation with who offered to give him referrals to private investigators to further pursue his past injustices. Reports that told pt that he had to get permission from his therapist before he would give pt these referrals. We briefly discussed and agreed to allow some more time to think about this. Pt also reported that he needs to improve his social life and was discussing ways to do this. DId not follow through with strategies to develop daily routine and possible distractions which involved setting up exercises in the barn I'm not mentally able to do this. Goal was to decrease time devoted to researching past injustices and legal recourse to less than 3 hours. Currently estimates this to be 5-7 hours. Risks/Concerns:: None noted. Progress Toward Goals/Plan:: Regression. More focused on pursuing legal recourse for percieved events in [place] since conversation with civil rights fruit distributor last week. He appears to be using the anger associated with that call to further motivate him. More active in his ruminations and plans to continue to seek legal recourse which is step back from previous weeks in which we worked to focus on present and future. Has insight and acknowledges unhealty ruminations and the negative impact on family and self however his desire to make changes is minimal. Remains entirely focused on past perceptions and winning his legal actions. I will not be satisfied unless I keep at it. Since conversation with fruit distributor and Deajanet Morrison pt appears to have made up his mind to not attempt to accept and work on healing from past percieved injustices, but rather is pursuing these more adamantly. Pt also appears to not be interested in counseling on identifying and managing distress related to triggers stating I've got to many other things to address. Plan to discuss case with psychiatrist. Aside from support and medication management from IOP its unclear if any further counseling interventions will be beneficial. Time Stopped:: 13:00
--- NOTE | 2020-08-27 09:00 | BH.SGPN.GN ---
Behaviors/Verbalizations/Mental Status: []client alert and oriented, neatly dressed and groomed. Eye contact avoidant. Motor activity appropriate. Speech within normal limits. Affect congruent to mood-tearful, mood dysthymic and anxious. Significant ruminations of past events and anger over injustices. Perhaps making connections that are not based in reality. Reviewed client's symptom tracker, no risk for suicidal ideations, plan, or intent as of 08/27/20. Client Response/Progress/Benefit: []Client responded well to session, attentive and receptive to feedback. However, client continues to struggle with ruminations about the past and this appears to be hindering client's current progress. Client stated he keeps having flashbacks from before I moved to [place]. Client reports these flashbacks are very triggering and make client ask himself what did I do to deserve being monitored like this. Client shared when he reaches out to his supports, they tell client to focus on the present and let go of the past. Client stated although his supports probably have good intentions, client perceives this as I'm not worth fighting for. The group provided positive support to client and ideas for healthy coping skills. Appeared to benefit from support provided and gentle thought challenging. Progress is minimal as client continues to endorse significant ruminations about past events and appears hyper-focused on seeking legal advice. Will continue IOP tx to prevent further decompensation and monitor mood. Narrative Note: []
--- NOTE | 2020-08-27 10:10 | BH.SGPN.GN ---
Behaviors/Verbalizations/Mental Status: [] Client alert and oriented, casually dressed and appropriately groomed. Eye contact good. Motor activity appropriate. Speech within normal limits. Affect congruent, mood anxious and agitated, Thoughts linear, logical, no signs of hallucinations or delusions. Client Response/Progress/Benefit: []Client receptive of session, attentive, providing input, and taking notes. Client agreed with the quote and shared that communication is a ?two-way street? and requires trust. Noted that without honesty it can be hard to maintain healthy communication. Group identified potential barriers to healthy communication as: high emotions, making assumptions, shutting down, and not being honest with self/others. Remained attentive and contributed during psychoeducation on the four communication styles, providing input throughout. Client shared that continuing to bottle things up and be passive can result in exploding or aggressive communication. Benefited from increased insight regarding own communication style and impacts this has on overall mental health. Progress limited as client continues to struggle with ruminating thoughts that impact his ability to consistently apply skills learned. Client will continue IOP to improve healthy coping skills, reduce mental health sx, and prevent decompensation. Narrative Note: []
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
--- NOTE | 2020-08-28 10:15 | BH.SGPN.GN ---
Behaviors/Verbalizations/Mental Status: []Client alert and oriented, casually dressed and appropriately groomed. Eye contact good. Motor activity appropriate. Speech within normal limits. Affect constricted, mood dysthymic. Thoughts linear, logical, no signs of hallucinations or delusions. Client Response/Progress/Benefit: [Client engaged during session AEB taking notes, providing input, and listening attentively to others. Client worked with peers on defining goals and brainstorming the benefits of goal setting. Benefits included: having a purpose or sense of direction, feels good, gives intentional focus, helps us make progress, and hold self-accountable. Contributed as group discussed the barriers that keep people from either setting goals or following through with goals. Client connected with others about consequences of striving for perfections. Client stated it's important to focus on practicing because there is typically room for improvement in what we are trying to achieve. Client attentive during psychoeducation on SMART goals. Appeared to benefit from learning the mental health benefits of setting goals using SMART criteria. During activity client struggled with reevaluating goal when group struggled with accomplishing set goal. Client will continue IOP to stabilize mood, improve daily functioning and prevent decompensation. Narrative Note: []
--- NOTE | 2020-08-28 11:10 | BH.SGPN.GN ---
Behaviors/Verbalizations/Mental Status: []Client alert and oriented, neatly dressed and groomed. Eye contact good. Motor activity appropriate. Speech within normal limits. Affect flat, mood dysthymic and anxious. Thoughts congruent with ruminations about the past and some evidence of delusions. Client Response/Progress/Benefit: []Client was an active participant AEB client taking notes, providing ideas, and creating a personal goal. Client was willing to complete the worksheet in which client was challenged to develop a personal SMART goal. Client?s goal is to reduce his child support to $300 in the next three months. Client reported in the next week he can contact anode adjuster. Client shared this goal will reduce anxiety and hopelessness. Client continues to be hyper-focused on legal issues while in IOP which may hinder progress. Encouraged to incorporate exercise, breaks, and positive self-talk. Benefited from this group by developing a short-term SMART goal related to mental health. Will continue IOP tx to monitor psychosis and prevent decompensation. Narrative Note: []
--- NOTE | 2020-09-02 09:00 | BH.SGPN.GN ---
Behaviors/Verbalizations/Mental Status: []Client alert and oriented, casually dressed. Eye contact fair. Motor activity appropriate. Speech within normal limits. Affect flat, mood dysthymic and anxious. Thoughts linear, logical, no signs of hallucinations or delusions. Reviewed client?s symptom tracker, no risk or plan for suicide ideation, plan, or intent as of 09/02/20. Client Response/Progress/Benefit: []Client responded well to session, engaged throughout and participated in group discussion. Client reported feeling ?overwhelmed, angry, and motivated? this morning. Client shared spending quality time with his daughter virtually by eating breakfast together and playing games which boosted his mood. Reports meeting with a new real estate attorney today as a positive and stressor. Other stressors reported included financial barriers, increased debt, difficult phone calls with IRS, and ruminating on past. Client reported ?spiral thinking patterns increasing when thinking of negative experiences.? Client identified journaling his ruminations as a current healthy coping skill. Benefited from group as client connected with peers by gaining positive support. Will continue IOP to decrease ruminations, challenge negative thoughts, and promote the use of healthy coping skills. Narrative Note: []
--- NOTE | 2020-09-02 10:05 | BH.SGPN.GN ---
Behaviors/Verbalizations/Mental Status: []Client alert and oriented, neatly dressed and groomed. Eye contact good. Motor activity appropriate. Speech within normal limits. Affect constricted, mood dysthymic. Thoughts linear, logical, no signs of hallucinations or delusions. Client Response/Progress/Benefit: []Client engaged participant AEB client taking notes and providing to discussion. Client commented on the quote as well as unhealthy coping skills. Client gave examples of unhealthy coping skills such as: ?smoking weed, overcompensating, and dumping my problems on others.? Group shared that people tend to use unhealthy coping skills because they are easier and provide quick relief. Client agreed with peers that using unhealthy coping skills can lead to more problems. Client participated in the group activity and connected that a healthy foundation of coping skills is composed of healthy internal and external coping skills. Client seemed to benefit from increased awareness of the importance of increasing healthy coping skills and consequences of utilizing unhealthy coping skills. Will continue IOP tx to improve functioning, prevent decompensation, and reduce ruminations. Narrative Note: []
--- NOTE | 2020-09-02 11:07 | BH.SGPN.GN ---
Behaviors/Verbalizations/Mental Status: []Client alert and oriented, casual dress, hygiene tended to. Eye contact fair to good. Motor activity appropriate. Speech within normal limits. Affect congruent, mood anxious, depressed, agitated. Thoughts linear, logical, no signs of hallucinations or delusions. Client Response/Progress/Benefit: [] Client responded well to session, actively listening, providing input, and taking notes throughout. Did well to share personal examples throughout discussion which continues to display some progress. Group discussed the different categories of coping skills which included distraction, emotional release, grounding, self-love, and thought challenging. Client participated in creating a coping skills ?menu? from the five categories of coping skills. Client's coping skill menu included: keeping track of personal accomplishments, going for walks, setting boundaries, deep breathing, and gaining an outside perspective. Shared he would like to focus more on writing to process his emotions as well as asking for help. Progress variable as client continues to struggle with intrusive thoughts which impact ability to make rational decisions and function at baseline. Appeared to benefit from increasing repertoire of healthy coping skills. Will continue tx to continue challenging distorted thoughts, increase mental health sx management, and prevent decompensation. Narrative Note: []
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
--- NOTE | 2020-09-03 09:10 | BH.SGPN.GN ---
Behaviors/Verbalizations/Mental Status: []Client alert and oriented, casually dressed and groomed. Eye contact fair. Motor activity appropriate. Speech within normal limits. Affect congruent, mood depressed and anxious. Thoughts linear, logical, no signs of hallucinations or delusions. Reviewed client?s symptom tracker, no risk for suicidal ideation, plan, or intent as of 09/03/20 Client Response/Progress/Benefit: [] Responded well to session, willing to check-in with group and provide supportive feedback to fellow participants. Client reports feeling a mixture of emotions this morning as he has several external stressors he has been struggling not to fixate on. Noted challenging himself to focus on his ?internal locus of control? and writing as skills most helpful in managing his intrusive thoughts. Identified current positives as continuing to seek help despite several negative experiences doing so in the past. Additional positive is focusing on continuing to use writing as a means of emotional release. At times client appears to continue to struggle with obsessing over his intrusive thoughts and reinforces these obsessive thinking patterns by writing about them which is impeding progress. Client received supportive statements from peers and guest services attendant. Will continue IOP tx to prevent decompensation, increase healthy coping, and improve mood stability. Narrative Note: []
--- NOTE | 2020-09-03 10:10 | BH.SGPN.GN ---
Behaviors/Verbalizations/Mental Status: [] Eye contact is good. Motor activity is appropriate. Appearance is casual. Speech is soft. Mood is depressed. Affect is flat. Thoughts are linear and logical. No evidence of psychosis. Client Response/Progress/Benefit: [] Pt was an active participant in group discussions and activities. Attentive. Pt wilton a picture depicting his current reality which included him being on the side of the mountain and looking up at the top where his house and daughter were. His desired reality is to take the shovel that he had used to dig himself into a hole and climb up the mountain. .Also identified resiliency traits which included being able to change his perspectives on things. Also identified potential barriers from reaching his desired reality. Benefited from from increased awareness on currently mental reality and strategies to progress to desired reality. Will continue in IOP to increase coping skills, stabilize mood, and prevent decompensation. Narrative Note: []
--- NOTE | 2020-09-03 11:10 | BH.SGPN.GN ---
Behaviors/Verbalizations/Mental Status: []Client alert and oriented, neatly dressed and groomed. Eye contact good. Motor activity appropriate. Speech within normal limits. Affect constricted, mood agitated. Thoughts linear, logical, no signs of hallucinations or delusions. Client Response/Progress/Benefit: []Client was an active participant in group discussion and activity. Engaged during activity and provided ideas on how to cope with internal barriers that keep clients stuck from moving towards goals. Barriers identified by client included: fear of failure, anger, fear of the unknown, and catastrophizing. Strategies identified for overcoming these barriers included: thought challenging, opposite action, catching self before exploding, and focusing on facts. Client wants to work on overcoming the barrier of anger by potentially getting back into exercising and practicing calming skills. Benefited from group by identifying obstacles and solutions to desired reality. Client reports progress with increasing his internal locus of control, however, client continues to struggle with ruminations. Will continue IOP tx to promote the use of healthy coping skills, improve daily functioning, and reduce ruminations. Narrative Note: []
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
--- NOTE | 2020-09-04 10:15 | BH.SGPN.GN ---
Behaviors/Verbalizations/Mental Status: [] Client alert and oriented, casually dressed and groomed. Eye contact fair to good. Motor activity appropriate. Speech within normal limits. Affect congruent, mood anxious and depressed. Thoughts linear, logical, no signs of hallucinations or delusions. Client Response/Progress/Benefit: [] Client active participant in group AEB client contributing thoughts and ideas throughout session and listening attentively to peers. Client connected with the quote and shared that taking no action means having awareness as ?we can?t address barriers if we don?t know about them?. Group worked together to identify barriers to taking action in their lives which included: fear of failure, lack of resources, indecision, anger/resentment, and distorted thoughts. Group identified that ?taking action? is needed in order to make mental health progress. Client identified personal areas they would like to take back control over in life to include: anger/resentment, fear of the unknown, trauma, shame, and toxic people. Client shared wanting to focus on first addressing shame. Benefited from awareness of personal areas client wants to improve and benefits to taking action towards mental wellness. Will continue IOP tx to improve mental health sx management, further reinforce healthy coping skills, and prevent decompensation. Narrative Note: []
--- NOTE | 2020-09-04 12:07 | PCM.BH.PN ---
Progress Note Progress Note: History of Present Illness/Interim History: [] Patient is a 35-year-old male who is seen in follow-up at the [facility] behavioral health IOP program. I last saw the patient about 2 weeks ago and at that time his Seroquel was increased to 400 mg p.o. nightly. He has been tolerating this well and says that he feels he is doing generally better overall. He says he is able to function much better at work and somewhat better at home. He feels more refreshed when he gets up in the morning. He feels that he still thinks quite a lot about his negative experiences in the past and his conspiracy theory/paranoia but he states that these thoughts are less gripping than they were before. There certainly still there but are easier to put out out of his mind sometimes during the day. He has been writing and feels that this has been somewhat cathartic. He has been ruminating lately over a couple of his past girlfriends and he feels in some way that some of these women were part of the conspiracy in the past. His mood is somewhat depressed as he is very stressed by having to pay taxes and the loss of his money in the past and the decrease in his income due to all the untoward events that happened in years past. Sleep remains good at about 8 or 9 hours a night. Energy level during the day is very good. He remains delusional but not as severe as before. He denies passive thoughts of , suicidal ideation or homicidal ideation. He denies any other hallucinations or other new delusions. Current Psychiatric Medications: [] Seroquel XR 400 mg p.o. nightly (x2 weeks on this dose); Lamictal 150 mg p.o. daily Mental Status Examination: [] Patient is a 35-year-old male who appears normal for stated age and is seen wearing a mask due to the pandemic. He is casually dressed and groomed with good hygiene. His speech is normal rate and rhythm and fluent with no pressure in his psych mood is still somewhat depressed. Affect is constricted. Thought process is goal-directed and organized. Thought content: There is evidence remaining of delusions of paranoia and conspiracy theory. There remains perseveration on the idea of these topics. There is no evidence of suicidal ideation, thoughts, homicidal ideation or hallucinations. Impulsivity remains moderate. Insight is limited. Judgment is intact. Diagnoses: [] Lincoln I: [] Probable schizoaffective disorder, bipolar type Lincoln II: [] Rule out paranoid personality disorder predating the above Lincoln III: [] Negative Lincoln IV:[]] Primary support, job, financial issues Plan: [] The patient will continue the IOP program at [facility] as the structure, support, education, individual and group therapy will hopefully prevent worsening of the patient's symptoms which might require hospitalization. He felt safe during the interview and if it anytime he does not feel safe he will let us know or go to the emergency room. The risks, options, possible complications and side effects of the medications were again discussed with the patient and he understands and accepts these. He agrees to increase his Seroquel XR to 600 mg p.o. nightly. Prescription was sent in for this. #30, 1 refill. He will continue to follow-up with his outpatient psychiatric and medical providers.
--- NOTE | 2020-09-04 12:11 | BH.COMM ---
Communication Note - Communication with Client Communication Note: Prescription for Seroquel XR 600mg PO every bedtime called in to [facility] per order of Dr. Natarajan.
--- NOTE | 2020-09-04 15:05 | BH.MDN ---
Multi-Disciplinary Note - Note 30-min Individual Time Started:: 12:30 Date: 09/04/20 Purpose of session/treatment goals addressed:: Reviewed progress and current symptoms. Addressed treatment goals 2 and 3. Eye Contact:: Fair Motor Activity:: Appropriate Appearance:: Casual Speech:: Appropriate Mood:: Depressed Affect:: Flat Thoughts:: Linear, Logical, No evidence of hallucinations/delusions noted Staff Interventions:: Utilized MO techiniques to elicit change. Praised pt for utilizing coping skill of writing and educating self on Bipolar. Client Response:: First session that pt did not bring up any obessive ruminations regarding past events. He continues to write and notes that this is helping him better understand Bipolar and its impact on him. He read his revised book to this therapist. The book is focused on his struggles with Bipolar and helps to describe and education others on the experiences of Bipolar. Very well writtten and articulate. Pt does an amazing job discussing the impact that Bipolar can have on individuals. Insight into the role that Bipolar and erratic moods have had on patient in past relationships. Risks/Concerns:: No risks or concerns noted. Progress Toward Goals/Plan:: Progress noted. Reports improved mood. Reports that he is not ruminating or dwelling as much on past events. Worked 4 days last week and plans to work 4 days this week. Not issues noted at work. Went the whole session w/o discussing his past injustices. Focused more on his writings on Bipolar. He notes that today during group activity he worked on developing goals to reduce of guilt and shame. Plan is to continue in IOP. Psychiatrist continued to increase medications this week. We discused possible discharge date of 09/18/20 Time Stopped:: 01:00
--- NOTE | 2020-09-09 09:00 | BH.SGPN.GN ---
Behaviors/Verbalizations/Mental Status: []Client alert and oriented, casually dressed. Eye contact fair. Motor activity appropriate. Speech within normal limits. Affect constricted, mood dysthymic and anxious. Thoughts linear, logical, no signs of hallucinations or delusions. Reviewed client?s symptom tracker, no risk or thoughts of suicide ideation, plan, or intent as of 09/09/20. Client Response/Progress/Benefit: []Client responded well to session, engaged throughout and participated in group discussion. Client reported feeling ?worn-out? this morning. Client reported his goals are to decrease the time spent ruminating, being present with family, increase the time spent working, and finding a new job. Identified increased medication, journaling, and talking to support as healthy coping skills. Client shared he has been feeling better overall and feels a decrease within his ruminations. Shared negatives as seeing triggers on a daily basis and struggles to reframe the negative thoughts. Client states he tries to find quotes to relate to when triggered and trying to reframe thoughts. Progress noted as client reports using healthy coping skills, but with racing thoughts, client becomes more dysthymic when speaking about stressors. Appeared to benefit form session as client offered positive support and ideas to peers. Will continue IOP to promote the use of healthy coping skills, decrease rumination, and challenge negative thoughts. Narrative Note: []
--- NOTE | 2020-09-09 10:07 | BH.SGPN.GN ---
Behaviors/Verbalizations/Mental Status: []Eye contact is good. Alert and oriented. Motor activity is appropriate. Appearance is casual. grooming is appropriate. Speech is Appropriate. Mood is depressed, anxious. Affect is congruent. Thoughts are linear and logical. No evidence of psychosis or hallucinations. Client Response/Progress/Benefit: [] Pt engaged participant AEB contributing input during session and engaging in activity. Pt assisted group with identifying consequences of not expressing emotions in a healthy way which included: increased isolation, getting hurt or hurting someone else, damaged reputation, reinforce distortions, and mental health negatively impacted. Shared ?if you don?t express your emotions then you?re not really managing them?. Pt identified lack of skills as a barrier to expressing one?s emotions in healthy ways. Pt did well to work with group to complete challenge activity and took on a leadership role during activity. Identified he felt comfortable during activity as he took on a role he felt capable of doing but would likely struggle is in a role where he didn?t have much control. Pt seemed to benefit from increased awareness of the impact unmanaged emotions can have on mental health. Pt is to continue IOP to increase healthy coping, improve sx management, and prevent decompensation. Narrative Note: []
--- NOTE | 2020-09-09 11:20 | BH.SGPN.GN ---
Behaviors/Verbalizations/Mental Status: []Client alert and oriented, casually dressed and appropriately groomed. Eye contact fair. Motor activity appropriate. Speech within normal limits. Affect constricted, mood dysthymic. Thoughts linear, logical, no signs of hallucinations or delusions. Client Response/Progress/Benefit: []Client engaged in session AEB client taking notes and was willing to complete worksheet, provided some input. Attentively listening during psychoeducation on 4 zones of regulation and able to identify feelings and behaviors for each zone. Worked with group to identify coping skills one can use to support self in each zone. Client reported he most often is in the yellow zone because feels always wired and self-consumed. Client reported he recognizes this results in him missing out on enjoying the present moment. Benefited from increased education on zones of regulation or stages of alertness for emotions and healthy coping skills to use for each zone. Will continue IOP tx to continue use of healthy coping skills, improve daily functioning, and prevent decompensation. Narrative Note: []
--- NOTE | 2020-09-09 13:33 | BH.MDN_ITS ---
Multi-Disciplinary Note - Note 45-min Individual Time Started:: 12:15 Date: 09/09/20 Purpose of session/treatment goals addressed:: Reviewed current progress and symptoms. Addressed all 3 treatment goals. Eye Contact:: Good Motor Activity:: Appropriate Appearance:: Casual Speech:: Appropriate Mood:: Irritable, Depressed Affect:: Flat Thoughts:: Linear, Logical Staff Interventions:: Praised pt for his efforts. Continued to encourage distress tolerance and coping skills when presented with triggers. Worked with patient on problem-solving skills. Client Response:: Pt reports progress in functioning at work. Notes increased i nteractions with peers at work I'm talking more. Feels more comfortable and in less distress. Notes decreased ruminations at work which had been significant in the past. 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 Problem-solving discussion on the benefits and negative to each profession. 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 Insight that getting back to work full-time consistenly would be first step to making a career change. Discussed conflict with parents over the weekend which was the result of a meeting in which parents were encouraging more future-based strategies. Per pt I'm learning that its not healthy for either of us to discuss past issues. Continues to report ruminations and anger about the past. Also stressed with finances, not seeing his daugter, and tax season. Struggling with managing triggers. Risks/Concerns:: No risk or concerns noted. Progress Toward Goals/Plan:: Progress noted per pt report. Improved functioning at work. Continues to report mood and cognition improvement due to medications and therapy. Less focused on ruminations however still present and interfering with functioning. Is utilizing skills used and reports increased awareness and insight. Future-oriented. Plan is to continue in IOP to maintain gains. Plan to discharge next week. Meets for initial psych eval with outside psychiatrist this afternoon. Time Stopped:: 13:00
--- NOTE | 2020-09-11 08:58 | BH.SGPN.GN ---
Behaviors/Verbalizations/Mental Status: []Eye contact is good. Alert and oriented. Motor activity is appropriate. Appearance is casual. grooming is appropriate. Speech is Appropriate. Mood is agitated, depressed. Affect is congruent. Thoughts are linear and logical. No evidence of psychosis or hallucinations. Client Response/Progress/Benefit: []Pt engaged in session AEB listening to others and willingness to share thoughts and feelings with group. Pt did well to identify personal wins, noting he was feeling ?middle of the road, both having positives and negatives? on this date. Shared current wins which included: spending time showing his daughter where he works, as well as making plans to have their ?Wednesday sing time?. Noted focusing on relationship with daughter has been helpful in continuing to prevent further depression. Additionally, reports using skills of reframing and writing his thoughts. Current stressor includes trying to take small steps towards figuring out his finances without becoming overwhelmed or catastrophizing. Recommended continued IOP tx to improve mental health sx management and prevent decompensation. Narrative Note: []
--- NOTE | 2020-09-11 10:03 | BH.SGPN.GN ---
Behaviors/Verbalizations/Mental Status: []Client alert and oriented, casually dressed and groomed. Eye contact fair. Motor activity appropriate. Speech quiet. Affect constricted, mood dysthymic. Thoughts linear, logical, no signs of hallucinations or delusions. Client Response/Progress/Benefit: []Client engaged during session AEB client providing input throughout discussion and completing worksheet. Connected with discussion on crisis and how coping with external crises by using unhealthy coping skills could result in a personal crisis. Reported I'm a control freak so will try to control the uncontrollable which he recognizes just wastes time. Group reflected on the importance of having awareness of personal warning signs in order to prevent reaching crisis point. Client identified personal crisis warning signs to include: racing thoughts, rapid mood changes and increased impulsiveness. Client benefited by increasing awareness of what leads to crisis and personal warning signs. Pt will continue IOP to stabilize moods, improve consistent use of healthy coping and prevent decompensation.
--- NOTE | 2020-09-11 11:03 | BH.SGPN.GN ---
Behaviors/Verbalizations/Mental Status: []Client alert and oriented, casually dressed and groomed. Eye contact good. Motor activity appropriate. Speech within normal limits. Affect constricted. Mood euthymic. Thoughts linear, logical, no signs of hallucinations or delusions. Client Response/Progress/Benefit: []Client responded well to session as evidenced by client listening attentively to others and providing input throughout session. Client identified his warning signs for crisis and gained further awareness of earliest warning signs. Client used the warning signs: impulsiveness, rapid mood changes, racing thoughts to create his crisis plan. Client?s action plan included: writing, focusing on a task, talking to a friend, deep breathing, removing self from triggers, and self-talk. Client also recognizes that he can ask outside support to help client cope with warning signs. Client appeared to benefit from creating a crisis action plan and increasing self-awareness. Client will continue IOP tx to promote mood stability, further increase daily functioning, and monitor medications. Narrative Note: []
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
--- NOTE | 2020-09-13 10:08 | BH.SGPN.GN ---
Behaviors/Verbalizations/Mental Status: []Client alert and oriented, neatly dressed and groomed. Eye contact good. Motor activity appropriate. Speech within normal limits. Affect constricted, mood agitated. Thoughts linear, logical, no signs of hallucinations or delusions. Client Response/Progress/Benefit: []client receptive to session, listening attentively to others and providing input. Appeared to listen as the group brainstormed the positive and negative aspects of stress on physical and mental health. Group worked together to define stress and provided input during discussion about eustress vs distress. Client identified personal stressors which included: needing new relationships, legal issues, missing his daughter, finances, and family. Client states when client is overwhelmed with stress client becomes obsessive with trying to ?gain control? of stressors which makes client lose focus on other things in life. Client does not believe that his stress jar is full, but not overflowing. Seemed to benefit from increased awareness of current stressors and impact of too much stress on the mind and body. Recommended to continue IOP tx to promote the use of healthy coping skills, increase mood stability, and further improve functioning. Narrative Note: []
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
--- NOTE | 2020-09-16 10:58 | BH.COMM ---
Communication Note - Communication with Client Communication Note: Cancelled due to illness
--- NOTE | 2020-09-18 10:59 | BH.COMM ---
Communication Note - Communication with Client Communication Note: cancelled due to illness. COVID test negative
== END 2020-09-25 23:59 ==
LOC: BHIOP 09:00
PROVIDERS: PCP Family Medicine; Referring Provider Psychiatry & Neurology Psychiatry; Visit Provider Psychiatry & Neurology Psychiatry
DX: F31.5 Bipolar disorder, current episode depressed, severe, with psychotic features (principal)
CPT/HCPCS: 99213; H0035; H2012; H2020; 90832; 90834

== ENCOUNTER 2020-09-27 09:00 | Outpatient (RCR) | payer MEDICAID, SELFPAY ==
[2020-01-26 09:18] VITALS: BMI 22.3
[2020-09-26 00:43] VITALS: BP 137/88; PULSE 86
--- NOTE | 2020-09-27 10:15 | BH.SGPN.GN ---
Behaviors/Verbalizations/Mental Status: []Client alert and oriented, casually dressed and appropriately groomed. Eye contact good. Motor activity appropriate. Slowed speech. Affect constricted, mood anxious, Thoughts linear, logical, no signs of hallucinations or delusions. Client Response/Progress/Benefit: []Client receptive of session, attentive, providing input, and taking notes. Client agreed with the quote and shared the importance of listening versus hearing and how it applies to his daily experiences with past relationships. Group identified potential barriers to healthy communication as: not wanting conflict, making assumptions, shutting down, and not being honest with self/others. Client shared the hardest thing about communicating with others is overgeneralizing conversations with others as he is fearful of being lied to. Client stated this defense mechanism was to protect himself from being hurt by others. Remained attentive and contributed during psychoeducation on the four communication styles, providing examples throughout. Client shared if one yells at him, he would yell back within aggressive communication styles. Benefited from increased insight regarding own communication style and impacts this has on overall mental health. Progress noted as client has continued to display insight into barriers impacting mental health progress. Client no longer meets criteria for treatment and will discharge from [facility] today. Narrative Note: []
--- NOTE | 2020-09-27 10:49 | BH.DS_ITS ---
Discharge Summary - Demographics Date of Admission:: 07/31/20 Discharge Date: 09/27/20 Presenting Problems at Admission:: Pt is a 35 year old male with hx of Bipolar disorder. Referred by outpatient therapist due to decompensation of depressive symptoms and limited benefit from traditional counseling. No previous psychiatric admissions. Pt reports depression and significant ruminations stating that he is haunted by his thoughts and the last 5 years. Endorses depressed mood, crying spells, hopelessness, no energy, decreased functioning, and racing thoughts. Denies suicidal ideations, plan, or intent. Reports I don't know how long I'm able to go on like this. No hx of attempts. Hx of trauma. Hx of rene which occured 8 months ago with symptoms of grandiose thinking, invincibility, impulsive behaviors, and hypersexuality. Endorses persecutory and paranoid thinking AEB of being monitored for years and obsessively researching the law. Hx of self-medicating with alcohol and cannabis. Sober since 11/2019. Not currently functioning at baseline and had not worked for a week prior to admission to [facility]. Primary support are his parents. Denies HI. Denies hallucinations. Discharge Diagnoses:: Bipolar Disorder, most recent episode depressive, severe, with psychosis. F31.5 Reason for Discharge:: No longer meets criteria for [facility] level of care. Completed majority of treatment plan. - Treatment Progress During Treatment & Response: Progress noted. According to DSM-5 cross- cutting scales pt had an overall reduction of 48% in mental health symptoms since admission. Pt also had a 50 % reduction in symptoms in the Depression and Anxiety subscales. More future-oriented. Ruminations remain and are still impacting functioing however they have decreased in severity, intensity, and frequency. Pt will discharge today as he no longer meets criteria for [facility] level of care. He has outpaitent set-up for both psychiatry and counseling. Issues Still to be Addressed:: Anger, managing emotional triggers, trauma, depression, and Bipolar. Discharge Recommendations/Instructions:: Recommended to follow up with psychiatry and counseling. Pt has appointment with outpatient psychiatrist Dr. Cespedes on 10/18/20. Phone messages left with pt's therapist Hetal Nolan to discuss discharge and set up appintment have not been returned. Pt agreeable to follow up with Hetal. Discharge Handout: Complete Discharge Handout with client on aftercare options and continuity of care.
--- NOTE | 2020-09-27 10:49 | BH.MDN_ITS ---
Multi-Disciplinary Note - Note 45-min Individual Time Started:: 09:15 Date: 09/27/20 Purpose of session/treatment goals addressed:: Review progress in [facility]. Complete outcomes. Finalize aftercare as this is patient's last day in [facility]. Eye Contact:: Good Motor Activity:: Appropriate Appearance:: Casual Speech:: Appropriate Mood:: Irritable, Depressed Affect:: Full Thoughts:: Linear, Logical, No evidence of hallucinations/delusions noted Staff Interventions:: Reviewed skills and discussions in [facility]. Praised pt for his consistent attendance and efforts in [facility]. Client Response:: Pt states that he is back to working full times and things are going better than before. He also reports that his medications are helping as well. Overall he is feeling better than he was when he entered [facility]. This is patient's last day in [facility]. Orginal discharge was scheduled last week however due to illness his missed all of last week. Talk was more future-oriented however he admits to continuing to struggle with anger over injustices of the past. Contines to ruminate however with less intensity, severity, and frequency. More optimistic about debt as it appears a substantial amount was forgiven. In the process of hiring civil rights attorney to help with child support and custody. He discussed long-term goals. 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 Very well written and insightful regarding the impact that Bipolar has had on his life. Risks/Concerns:: No risks or concerns noted. Progress Toward Goals/Plan:: Progress noted. According to DSM-5 cross-cutting scales pt had an overall reduction of 48% in mental health symptoms since admission. Pt also had a 50 % reduction in symptoms in the Depression and Anxiety subscales. More future-oriented. Ruminations remain and are still impacting functioing however they have decreased in severity, intensity, and frequency. Pt will discharge today as he no longer meets criteria for [facility] level of care. He has outpaitent set-up for both psychiatry and counseling. Time Stopped:: 10:00
--- NOTE | 2020-09-27 11:15 | BH.SGPN.GN ---
Behaviors/Verbalizations/Mental Status: []Client alert and oriented, casually dressed and groomed. Eye contact good. Motor activity appropriate. Speech WNL. Affect slightly constricted, mood euthymic. Thoughts linear, logical, no signs of hallucinations or delusions. Client Response/Progress/Benefit: []Client responded well to session AEB client listening attentively to others and providing input during group discussion on the pay offs and costs of the different communication styles. Client stated he most often is a passive communicator because convinces self that he can just get over it. Client reported eventually holding his emotions in will lead to aggressive communication. Attentive during psychoeducation on interpersonal skill of CELINA and client selected an communication skill to practice. Client selected the skill of working on describing the facts of what is discussing with another person so everyone is on the same page. Client seemed to benefit from increasing awareness of healthy strategies to improve communication. Client has made significant treatment progress since starting IOP and will discharge today.
== END 2020-09-27 12:29 | disposition home or self-care (01) ==
LOC: BHIOP 09:00
PROVIDERS: PCP Family Medicine; Referring Provider Psychiatry & Neurology Psychiatry; Visit Provider Psychiatry & Neurology Psychiatry
DX: F31.5 Bipolar disorder, current episode depressed, severe, with psychotic features (principal)
CPT/HCPCS: H0035; H2012; 90834